=== PATIENT | male | born 1945 | race Caucasian/White ===

== ENCOUNTER 2017-08-20 14:10 | Emergency (ER) | payer MEDICARE, OTHER ==
[~2017-08-20] VITALS: Ht 180.3 cm; Wt 83.0 kg
[2017-08-20 14:11] VITALS: BP 124/80
[2017-08-20] MEDS ORDERED: TRANEXAMIC ACID 100 MG/ML, 10ML TP STA (14:23)
[2017-08-20] MEDS ORDERED: OXYMETAZOLINE NASAL SPRAY 0.05%, 15ML ONE (14:26)
[2017-08-20] MEDS ORDERED: SILVER NITRATE STICK TP ONE (14:26)
[2017-08-20] MEDS ORDERED: TRANEXAMIC ACID 100 MG/ML, 10ML ONE (14:28)
[2017-08-20] MEDS ORDERED: OXYMETAZOLINE NASAL SPRAY 0.05%, 15ML NAS ONE (14:30)
[2017-08-20] MEDS ORDERED: LOSA1TAB19 PO (15:04)
[2017-08-20] MEDS ORDERED: ASPI-496 PO (15:04)
== END 2017-08-20 16:15 | disposition home or self-care (01) ==
LOC: ED 15:30
DX: R04.0 Epistaxis (principal); I10 Essential (primary) hypertension
CPT/HCPCS: 30901; 99284

== ENCOUNTER 2017-08-22 10:57 | Emergency (ER) | payer MEDICARE, OTHER ==
[~2017-08-22] VITALS: Ht 180.3 cm; Wt 83.8 kg
[~2017-08-22 10:57] MED LIST: ASPI-496 PO; LOSA1TAB19 PO
[2017-08-22] MEDS ORDERED: LIDOCAINE GEL 2%, 5ML ONE (11:32)
[2017-08-22] MEDS ORDERED: PHENYLEPHRINE NASAL 1%, 15ML SPRAY ONE (11:32)
[2017-08-22] MEDS ORDERED: LIDOCAINE-MPF 1%, 5ML ONE (11:34)
[2017-08-22] MEDS ORDERED: SILVER NITRATE STICK TP ONE (12:08)
[2017-08-22 14:39] VITALS: BP 131/91
== END 2017-08-22 14:42 | disposition home or self-care (01) ==
LOC: ED 14:19
DX: R04.0 Epistaxis (principal); I10 Essential (primary) hypertension
CPT/HCPCS: 30901; 99282; 99284

== ENCOUNTER 2017-12-28 08:29 | Inpatient (IN) | payer MEDICARE, OTHER ==
[~2017-12-28] VITALS: Ht 180.3 cm; Wt 79.1 kg
[2017-12-28] MEDS ORDERED: ASPIRIN 81 MG TABLET CHEW ONE (09:28)
[2017-12-28] MEDS ORDERED: SODIUM CHLORIDE FLUSH 10ML SYR IVF ONE (09:30)
[2017-12-28] MEDS ORDERED: ASPIRIN 81 MG TABLET CHEW PO ONE (09:30)
[2017-12-28 09:38] LABS: BASOPHILS # (AUTO) 0.02 x10^3/uL (0-0.1); BASOPHILS % (AUTO) 0 % (0-1); EOSINOPHILS # (AUTO) 0.15 x10^3/uL (0-0.4); EOSINOPHILS % (AUTO) 2 % (1-7); LYMPHOCYTES # (AUTO) 1.52 x10^3/uL (1-3.4); LYMPHOCYTES % (AUTO) 18 % (22-44); MD NO; MEAN CORPUSCULAR HEMOGLOBIN 31.4 pg (27.5-34.5); MEAN CORPUSCULAR HGB CONC 33.7 g/dL (33.2-36.2); MEAN CORPUSCULAR VOLUME 93.2 fL (81-97); MEAN PLATELET VOLUME 9.8 fL (7.4-10.4); MONOCYTES # (AUTO) 0.82 x10^3/uL (0.2-0.8); MONOCYTES % (AUTO) 10 % (2-9); NEUTROPHILS # (AUTO) 6.01 x10^3/uL (1.8-6.8); NEUTROPHILS % (AUTO) 71 % (42-75); PLATELET COUNT 210 x10^3/uL (130-400); RED BLOOD COUNT 4.89 x10^6/uL (4.38-5.82); RED CELL DISTRIBUTION WIDTH 14.1 % (9.4-14.8)
[2017-12-28 09:48] LABS: INTERNATIONAL NORMALIZED RATIO 1.3 (0.93-1.1); PROTHROMBIN TIME 13.5 Seconds (9.6-11.5)
[2017-12-28 09:50] LABS: ALBUMIN 3.4 g/dL (3.4-5.0); ANION GAP 6 mmol/L (5-15); CALCIUM 8.3 mg/dL (8.5-10.1); CHLORIDE 107 mmol/L (98-107)
[2017-12-28 09:55] LABS: ALANINE AMINOTRANSFERASE 81 U/L (12-78); ALKALINE PHOSPHATASE 73 U/L (45-117); BILIRUBIN,TOTAL 1.8 mg/dL (0.2-1.0); TOTAL PROTEIN 6.4 g/dL (6.4-8.2)
[2017-12-28 09:57] LABS: TROPONIN I 0.285 ng/mL (0.000-0.045)
[2017-12-28] MEDS ORDERED: FUROSEMIDE 40 MG/4 ML IV ONE (10:00)
[2017-12-28] MEDS ORDERED: HEPARIN 25,000 UNITS/500ML PMX 500 ML IV PRN (10:30)
[2017-12-28] MEDS ORDERED: HEPARIN 5,000 UNITS/ML, 1ML IV PRN (10:30)
[2017-12-28] MEDS ORDERED: HEPARIN 5,000 UNITS/ML, 1ML IV ONE (10:30)
[2017-12-28] MEDS ORDERED: FUROSEMIDE 20 MG/2 ML ONE (11:18)
[2017-12-28] MEDS ORDERED: HEPARIN 5,000 UNITS/ML, 1ML ONE (11:18)
[2017-12-28 12:04] VITALS: BP 122/83
[2017-12-28] MEDS ORDERED: DOCUSATE 100 MG CAPSULE PO PRN (13:00)
[2017-12-28] MEDS ORDERED: ONDANSETRON ODT 4 MG PO PRN (13:00)
[2017-12-28] MEDS ORDERED: ONDANSETRON 2MG/ML, 2ML IVPush PRN (13:00)
[2017-12-28] MEDS ORDERED: NITROGLYCERIN 0.4 MG/SPRAY SL PRN (13:00)
[2017-12-28] MEDS ORDERED: NITROGLYCERIN 0.4 MG BOTTLE (25 TABS) SL PRN (13:00)
[2017-12-28] MEDS ORDERED: morphine SULFATE 10 MG/ML, 1ML IVPush PRN (13:00)
[2017-12-28] MEDS ORDERED: ZOLPIDEM 5MG TABLET PO PRN (13:00)
[2017-12-28 13:27] VITALS: BP 101/66
[2017-12-28 13:52] LABS: THYROID STIMULATING HORMONE 3.09 mIU/L (0.358-3.740)
[2017-12-28] MEDS: SUCRALFATE 1 GM/10 ML UDC PO SCH ×3 (14:15→21:02)
[2017-12-28] MEDS: SPIRONOLACTONE 25 MG TABLET PO SCH (17:07)
[2017-12-28] MEDS: FUROSEMIDE 20 MG/2 ML IV SCH (17:07)
[2017-12-28] MEDS: CAPTOPRIL 12.5 MG TABLET PO SCH (21:02)
[2017-12-28] MEDS: ROPINIROLE 0.5MG TABLET PO SCH (21:02)
[2017-12-28 21:39] VITALS: BP 106/68
[2017-12-28 21:59] LABS: TROPONIN I 0.273 ng/mL (0.000-0.045)
[2017-12-29] MEDS: HEPARIN 5,000 UNITS/ML, 1ML IV PRN ×2 (01:24→15:11)
[2017-12-29 03:55] VITALS: BP 119/80
[2017-12-29] MEDS: ASPIRIN 325 MG TABLET EC PO SCH (06:25)
[2017-12-29 06:46] VITALS: BP 113/75
[2017-12-29 07:58] LABS: BASOPHILS # (AUTO) 0.06 x10^3/uL (0-0.1); BASOPHILS % (AUTO) 1 % (0-1); EOSINOPHILS # (AUTO) 0.15 x10^3/uL (0-0.4); EOSINOPHILS % (AUTO) 2 % (1-7); LYMPHOCYTES # (AUTO) 1.82 x10^3/uL (1-3.4); LYMPHOCYTES % (AUTO) 21 % (22-44); MD NO; MEAN CORPUSCULAR HEMOGLOBIN 30.5 pg (27.5-34.5); MEAN CORPUSCULAR VOLUME 92.3 fL (81-97); MEAN PLATELET VOLUME 10.1 fL (7.4-10.4); MONOCYTES # (AUTO) 0.95 x10^3/uL (0.2-0.8); MONOCYTES % (AUTO) 11 % (2-9); NEUTROPHILS # (AUTO) 5.85 x10^3/uL (1.8-6.8); NEUTROPHILS % (AUTO) 66 % (42-75); PLATELET COUNT 194 x10^3/uL (130-400); RED BLOOD COUNT 4.91 x10^6/uL (4.38-5.82); RED CELL DISTRIBUTION WIDTH 14.1 % (9.4-14.8)
[2017-12-29 08:11] LABS: ALBUMIN 3.3 g/dL (3.4-5.0); ANION GAP 9 mmol/L (5-15); CALCIUM 8.5 mg/dL (8.5-10.1); CHLORIDE 104 mmol/L (98-107)
[2017-12-29 08:17] LABS: ALANINE AMINOTRANSFERASE 71 U/L (12-78); ALKALINE PHOSPHATASE 69 U/L (45-117); BILIRUBIN,TOTAL 2.1 mg/dL (0.2-1.0); CHOL/HDL RATIO 3.2; CHOLESTEROL, TOTAL 123 mg/dL (140-239); HDL CHOL % 31 % (26-37); HDL CHOLESTEROL (DIRECT) 38 mg/dL (40-60); LDL CHOLESTEROL,CALCULATED 67 mg/dL (54-169); LDL/HDL RATIO 1.8 (0.5-3.0); TOTAL PROTEIN 6.3 g/dL (6.4-8.2); TRIGLYCERIDES 91 mg/dL (50-200); VLDL CHOLESTEROL 18 mg/dL (0-25)
[2017-12-29] MEDS: SUCRALFATE 1 GM/10 ML UDC PO SCH ×4 (08:20→21:49)
[2017-12-29] MEDS: PANTOPRAZOLE 40 MG IV IVPush SCH (08:20)
[2017-12-29] MEDS: MAGNESIUM OXIDE 400 MG TABLET PO SCH (08:21)
[2017-12-29] MEDS: SPIRONOLACTONE 25 MG TABLET PO SCH (08:21)
[2017-12-29] MEDS: FUROSEMIDE 20 MG/2 ML IV SCH ×2 (11:43→16:11)
[2017-12-29 11:45] VITALS: BP 118/68
[2017-12-29] MEDS: CAPTOPRIL 12.5 MG TABLET PO SCH ×2 (11:50→21:50)
[2017-12-29] MEDS: HEPARIN 25,000 UNITS/500ML PMX 500 ML IV PRN (12:05)
[2017-12-29 12:36] VITALS: BP 104/64
[2017-12-29 21:11] VITALS: BP 111/72
[2017-12-29] MEDS: ROPINIROLE 0.5MG TABLET PO SCH (22:27)
[2017-12-30 01:07] VITALS: BP 102/62
[2017-12-30 03:34] LABS: ALBUMIN 3.2 g/dL (3.4-5.0); ANION GAP 5 mmol/L (5-15); CALCIUM 8.4 mg/dL (8.5-10.1); CHLORIDE 104 mmol/L (98-107)
[2017-12-30 03:39] LABS: ALANINE AMINOTRANSFERASE 63 U/L (12-78); ALKALINE PHOSPHATASE 63 U/L (45-117); CREATININE 0.98 mg/dL (0.7-1.3); TOTAL PROTEIN 6.3 g/dL (6.4-8.2)
[2017-12-30] MEDS: ASPIRIN 325 MG TABLET EC PO SCH (06:48)
[2017-12-30] MEDS ORDERED: POTASSIUM CHLORIDE 20 MEQ TAB.ER.PRT PO ONE (07:00)
[2017-12-30 07:48] VITALS: BP 107/70
[2017-12-30] MEDS: FUROSEMIDE 20 MG/2 ML IV SCH ×2 (08:13→17:12)
[2017-12-30] MEDS: PANTOPRAZOLE 40 MG IV IVPush SCH (08:13)
[2017-12-30] MEDS: SUCRALFATE 1 GM/10 ML UDC PO SCH ×4 (08:17→21:23)
[2017-12-30] MEDS: MAGNESIUM OXIDE 400 MG TABLET PO SCH (08:17)
[2017-12-30] MEDS: SPIRONOLACTONE 25 MG TABLET PO SCH (08:17)
[2017-12-30] MEDS: CAPTOPRIL 12.5 MG TABLET PO SCH ×2 (08:18→21:23)
[2017-12-30] MEDS: HEPARIN 25,000 UNITS/500ML PMX 500 ML IV PRN (08:30)
[2017-12-30 13:35] VITALS: BP 109/72
[2017-12-30 17:12] VITALS: BP 113/77
[2017-12-30 20:27] VITALS: BP 110/71
[2017-12-30] MEDS: ROPINIROLE 0.5MG TABLET PO SCH (21:23)
[2017-12-31 01:38] VITALS: BP 111/72
[2017-12-31] MEDS: METHYL SALICYLATE/MENTHOL CRM 85GM TP PRN (02:14)
[2017-12-31] MEDS: HEPARIN 25,000 UNITS/500ML PMX 500 ML IV PRN (04:05)
[2017-12-31 05:54] LABS: BASOPHILS # (AUTO) 0.01 x10^3/uL (0-0.1); BASOPHILS % (AUTO) 0 % (0-1); EOSINOPHILS # (AUTO) 0.12 x10^3/uL (0-0.4); EOSINOPHILS % (AUTO) 2 % (1-7); LYMPHOCYTES # (AUTO) 1.83 x10^3/uL (1-3.4); LYMPHOCYTES % (AUTO) 23 % (22-44); MD NO; MEAN CORPUSCULAR HEMOGLOBIN 31.9 pg (27.5-34.5); MEAN CORPUSCULAR HGB CONC 34.1 g/dL (33.2-36.2); MEAN CORPUSCULAR VOLUME 93.6 fL (81-97); MEAN PLATELET VOLUME 9.8 fL (7.4-10.4); MONOCYTES # (AUTO) 0.91 x10^3/uL (0.2-0.8); MONOCYTES % (AUTO) 11 % (2-9); NEUTROPHILS # (AUTO) 5.13 x10^3/uL (1.8-6.8); NEUTROPHILS % (AUTO) 64 % (42-75); PLATELET COUNT 204 x10^3/uL (130-400); RED BLOOD COUNT 4.67 x10^6/uL (4.38-5.82); RED CELL DISTRIBUTION WIDTH 13.4 % (9.4-14.8)
[2017-12-31] MEDS: ASPIRIN 325 MG TABLET EC PO SCH (05:56)
[2017-12-31 06:04] LABS: ALBUMIN 3.1 g/dL (3.4-5.0); ANION GAP 8 mmol/L (5-15); CALCIUM 8.7 mg/dL (8.5-10.1); CHLORIDE 105 mmol/L (98-107)
[2017-12-31 06:05] LABS: CREATININE 0.94 mg/dL (0.7-1.3)
[2017-12-31] MEDS ORDERED: POTASSIUM CHLORIDE 20 MEQ in SODIUM CHLORIDE 0.9% 250 ML IV ONE (06:30)
[2017-12-31 07:36] VITALS: BP 112/78
[2017-12-31] MEDS: MAGNESIUM OXIDE 400 MG TABLET PO SCH (08:54)
[2017-12-31] MEDS: SUCRALFATE 1 GM/10 ML UDC PO SCH ×4 (08:54→20:16)
[2017-12-31] MEDS: SPIRONOLACTONE 25 MG TABLET PO SCH (08:54)
[2017-12-31] MEDS: FUROSEMIDE 20 MG/2 ML IV SCH ×2 (08:55→16:43)
[2017-12-31] MEDS: PANTOPRAZOLE 40 MG IV IVPush SCH (08:55)
[2017-12-31] MEDS: CAPTOPRIL 12.5 MG TABLET PO SCH ×2 (09:09→20:16)
[2017-12-31 13:54] VITALS: BP 98/66
[2017-12-31] MEDS ORDERED: VERAPAMIL 2.5 MG/ML, 2ML ONE (15:17)
[2017-12-31] MEDS ORDERED: FENTANYL PF 100 MCG/2ML ONE (15:17)
[2017-12-31] MEDS ORDERED: BIVALIRUDIN 250 MG ONE (15:17)
[2017-12-31] MEDS ORDERED: LIDOCAINE-MPF 2% ,5ML ONE (15:17)
[2017-12-31] MEDS ORDERED: TICAGRELOR 90 MG TABLET ONE (15:17)
[2017-12-31] MEDS ORDERED: MIDAZOLAM 1 MG/ML, 5ML ONE (15:17)
[2017-12-31 16:42] VITALS: BP 108/69
[2017-12-31] MEDS: CARVEDILOL 3.125 MG TABLET PO SCH (17:44)
[2017-12-31 19:52] VITALS: BP 91/61
[2017-12-31] MEDS: TICAGRELOR 90 MG TABLET PO SCH (20:15)
[2017-12-31] MEDS: ROPINIROLE 0.5MG TABLET PO SCH (20:16)
[2018-01-01 03:30] VITALS: BP 100/65
[2018-01-01 05:24] LABS: BASOPHILS # (AUTO) 0.02 x10^3/uL (0-0.1); BASOPHILS % (AUTO) 0 % (0-1); EOSINOPHILS # (AUTO) 0.12 x10^3/uL (0-0.4); EOSINOPHILS % (AUTO) 1 % (1-7); LYMPHOCYTES % (AUTO) 15 % (22-44); MD NO; MEAN CORPUSCULAR HEMOGLOBIN 31.1 pg (27.5-34.5); MEAN CORPUSCULAR HGB CONC 33.2 g/dL (33.2-36.2); MEAN CORPUSCULAR VOLUME 93.7 fL (81-97); MEAN PLATELET VOLUME 9.6 fL (7.4-10.4); MONOCYTES # (AUTO) 1.14 x10^3/uL (0.2-0.8); MONOCYTES % (AUTO) 13 % (2-9); NEUTROPHILS % (AUTO) 70 % (42-75); PLATELET COUNT 220 x10^3/uL (130-400); RED BLOOD COUNT 4.84 x10^6/uL (4.38-5.82); RED CELL DISTRIBUTION WIDTH 13.8 % (9.4-14.8)
[2018-01-01 05:32] LABS: ALANINE AMINOTRANSFERASE 52 U/L (12-78); ALBUMIN 3.3 g/dL (3.4-5.0); ANION GAP 6 mmol/L (5-15); CALCIUM 8.7 mg/dL (8.5-10.1); CHLORIDE 102 mmol/L (98-107); CREATININE 1.09 mg/dL (0.7-1.3)
[2018-01-01 05:34] LABS: ALKALINE PHOSPHATASE 56 U/L (45-117); BILIRUBIN,TOTAL 2.4 mg/dL (0.2-1.0); TOTAL PROTEIN 6.4 g/dL (6.4-8.2)
[2018-01-01] MEDS ORDERED: POTASSIUM CHLORIDE 20 MEQ TAB.ER.PRT PO ONE (06:30)
[2018-01-01] MEDS: PANTOPRAZOLE 40 MG IV IVPush SCH (07:30)
[2018-01-01] MEDS: FUROSEMIDE 20 MG/2 ML IV SCH (07:30)
[2018-01-01 08:11] VITALS: BP 94/60
[2018-01-01] MEDS: MAGNESIUM OXIDE 400 MG TABLET PO SCH (09:00)
[2018-01-01 09:51] VITALS: BP 93/62
[2018-01-01] MEDS: CAPTOPRIL 12.5 MG TABLET PO SCH (09:54)
[2018-01-01] MEDS: ASPIRIN 81 MG TABLET EC PO SCH (09:58)
[2018-01-01] MEDS: TICAGRELOR 90 MG TABLET PO SCH ×2 (09:58→21:00)
[2018-01-01] MEDS: SPIRONOLACTONE 25 MG TABLET PO SCH (09:58)
[2018-01-01] MEDS: CARVEDILOL 3.125 MG TABLET PO SCH ×2 (09:58→17:34)
[2018-01-01] MEDS: SUCRALFATE 1 GM/10 ML UDC PO SCH ×4 (09:59→21:05)
[2018-01-01 12:37] VITALS: BP 95/62
[2018-01-01 13:20] VITALS: BP 97/61
[2018-01-01] MEDS: METHYL SALICYLATE/MENTHOL CRM 85GM TP PRN (17:33)
[2018-01-01 19:52] VITALS: BP 116/78
[2018-01-01] MEDS: FERROUS SULFATE 325 MG TABLET PO SCH (21:05)
[2018-01-01] MEDS: ROPINIROLE 0.5MG TABLET PO SCH (21:06)
[2018-01-01] MEDS: ATORVASTATIN 40 MG TABLET PO SCH (21:06)
[2018-01-01] MEDS: LISINOPRIL 5 MG TABLET PO SCH (21:06)
[2018-01-02] VITALS (11 sets, daily range): BP systolic 81–101; BP diastolic 50–69
[2018-01-02] MEDS: CARVEDILOL 3.125 MG TABLET PO SCH ×2 (06:00→21:21)
[2018-01-02 06:01] LABS: ALBUMIN 3.3 g/dL (3.4-5.0); ANION GAP 4 mmol/L (5-15); CALCIUM 8.5 mg/dL (8.5-10.1); CHLORIDE 106 mmol/L (98-107)
[2018-01-02 06:06] LABS: ALANINE AMINOTRANSFERASE 52 U/L (12-78); ALKALINE PHOSPHATASE 59 U/L (45-117); BILIRUBIN,TOTAL 2.5 mg/dL (0.2-1.0); CREATININE 0.92 mg/dL (0.7-1.3); TOTAL PROTEIN 6.3 g/dL (6.4-8.2)
[2018-01-02 07:48] LABS: ABSOLUTE RETICS # 0.067 x10^6/uL (0.5-1.5); RED BLOOD COUNT 4.86 x10^6/uL (4.38-5.82); RETICULOCYTE COUNT % 1.37 % (0.5-1.5)
[2018-01-02] MEDS ORDERED: ATROPINE SYRINGE 0.1 MG/ML, 10ML ONE (07:59)
[2018-01-02] MEDS: LISINOPRIL 5 MG TABLET PO SCH ×2 (09:00→21:00)
[2018-01-02] MEDS: CLOPIDOGREL 75 MG TABLET PO SCH (09:31)
[2018-01-02] MEDS: SUCRALFATE 1 GM/10 ML UDC PO SCH ×4 (09:31→20:56)
[2018-01-02] MEDS: ASPIRIN 81 MG TABLET EC PO SCH (09:31)
[2018-01-02] MEDS: POTASSIUM CHLORIDE 10 MEQ TABLET.ER PO SCH (09:31)
[2018-01-02] MEDS: MAGNESIUM OXIDE 400 MG TABLET PO SCH (09:32)
[2018-01-02] MEDS: FUROSEMIDE 20 MG TABLET PO SCH (09:32)
[2018-01-02] MEDS: FERROUS SULFATE 325 MG TABLET PO SCH ×2 (09:32→20:56)
[2018-01-02] MEDS: SPIRONOLACTONE 25 MG TABLET PO SCH (09:32)
[2018-01-02] MEDS ORDERED: FERR-51 PO (11:11)
[2018-01-02] MEDS ORDERED: ROPI0.5T PO (11:11)
[2018-01-02] MEDS ORDERED: SPIR25TA PO (11:11)
[2018-01-02] MEDS ORDERED: CLOP75TA PO (11:11)
[2018-01-02] MEDS ORDERED: CARV3.1212 PO (11:11)
[2018-01-02] MEDS ORDERED: FURO20TA3 PO (11:11)
[2018-01-02] MEDS ORDERED: PANT40TA5 PO (11:11)
[2018-01-02] MEDS ORDERED: MAGN400T26 PO (11:11)
[2018-01-02] MEDS ORDERED: POTA10TA5 PO (11:11)
[2018-01-02] MEDS ORDERED: ATOR40TA78 PO (11:11)
[2018-01-02] MEDS: PANTOPROZOLE 40MG TABLET PO SCH (11:32)
[2018-01-02] MEDS ORDERED: CARVEDILOL 3.125 MG TABLET PO ONE (12:30)
[2018-01-02] MEDS ORDERED: MELATONIN 3 MG TABLET PO PRN (17:30)
[2018-01-02] MEDS: ATORVASTATIN 40 MG TABLET PO SCH (20:56)
[2018-01-02] MEDS: ROPINIROLE 0.5MG TABLET PO SCH (21:00)
[2018-01-03] MEDS: ROPINIROLE 0.5MG TABLET PO SCH (00:44)
[2018-01-03 04:10] VITALS: BP 99/63
[2018-01-03 05:57] LABS: BASOPHILS # (AUTO) 0.01 x10^3/uL (0-0.1); BASOPHILS % (AUTO) 0 % (0-1); EOSINOPHILS # (AUTO) 0.18 x10^3/uL (0-0.4); EOSINOPHILS % (AUTO) 3 % (1-7); LYMPHOCYTES # (AUTO) 1.62 x10^3/uL (1-3.4); LYMPHOCYTES % (AUTO) 23 % (22-44); MD NO; MEAN CORPUSCULAR HEMOGLOBIN 31.6 pg (27.5-34.5); MEAN CORPUSCULAR HGB CONC 33.6 g/dL (33.2-36.2); MEAN PLATELET VOLUME 9.3 fL (7.4-10.4); MONOCYTES # (AUTO) 0.91 x10^3/uL (0.2-0.8); MONOCYTES % (AUTO) 13 % (2-9); NEUTROPHILS # (AUTO) 4.41 x10^3/uL (1.8-6.8); NEUTROPHILS % (AUTO) 62 % (42-75); PLATELET COUNT 194 x10^3/uL (130-400); RED BLOOD COUNT 4.61 x10^6/uL (4.38-5.82); RED CELL DISTRIBUTION WIDTH 13.6 % (9.4-14.8)
[2018-01-03 06:00] LABS: CALCIUM 8.4 mg/dL (8.5-10.1); CHLORIDE 103 mmol/L (98-107)
[2018-01-03] MEDS: CARVEDILOL 3.125 MG TABLET PO SCH (06:00)
[2018-01-03 06:06] LABS: ALANINE AMINOTRANSFERASE 54 U/L (12-78); ALBUMIN 3.2 g/dL (3.4-5.0); ALKALINE PHOSPHATASE 56 U/L (45-117); ANION GAP 7 mmol/L (5-15); BILIRUBIN,TOTAL 2.2 mg/dL (0.2-1.0); CREATININE 1.18 mg/dL (0.7-1.3); TOTAL PROTEIN 6.2 g/dL (6.4-8.2)
[2018-01-03 08:15] VITALS: BP 96/58
[2018-01-03] MEDS: CLOPIDOGREL 75 MG TABLET PO SCH (08:16)
[2018-01-03] MEDS: SPIRONOLACTONE 25 MG TABLET PO SCH (08:16)
[2018-01-03] MEDS: SUCRALFATE 1 GM/10 ML UDC PO SCH (08:16)
[2018-01-03] MEDS: FUROSEMIDE 20 MG TABLET PO SCH (08:16)
[2018-01-03] MEDS: MAGNESIUM OXIDE 400 MG TABLET PO SCH (08:16)
[2018-01-03] MEDS: FERROUS SULFATE 325 MG TABLET PO SCH (08:16)
[2018-01-03] MEDS: PANTOPROZOLE 40MG TABLET PO SCH (08:16)
[2018-01-03] MEDS: LISINOPRIL 5 MG TABLET PO SCH (08:16)
[2018-01-03] MEDS: POTASSIUM CHLORIDE 10 MEQ TABLET.ER PO SCH (08:16)
[2018-01-03] MEDS: ASPIRIN 81 MG TABLET EC PO SCH (08:16)
[2018-01-03] MEDS ORDERED: LISI5TAB7 PO (09:10)
[2018-01-03 09:35] VITALS: BP 97/54
== END 2018-01-03 12:23 | disposition home or self-care (01) | DRG 246 ==
LOC: ED 10:25 → EDIP 10:32 → 5SO 11:38 → DCLOUNGE 01-03 11:48
PROVIDERS: ADMIT Internal Medicine; ATTEND Internal Medicine
PROC: 4A023N7 Measurement of Cardiac Sampling and Pressure, Left Heart, Percutaneous Approach (ICD-10-PCS; principal; 2017-12-31)
PROC: 027034Z Dilation of Coronary Artery, One Artery with Drug-eluting Intraluminal Device, Percutaneous Approach (ICD-10-PCS; 2017-12-31)
PROC: B2111ZZ Fluoroscopy of Multiple Coronary Arteries using Low Osmolar Contrast (ICD-10-PCS; 2017-12-31)
PROC: B2151ZZ Fluoroscopy of Left Heart using Low Osmolar Contrast (ICD-10-PCS; 2017-12-31)
DX: I21.4 Non-ST elevation (NSTEMI) myocardial infarction (principal); I50.31 Acute diastolic (congestive) heart failure; I42.9 Cardiomyopathy, unspecified; E44.1 Mild protein-calorie malnutrition; I31.3 Pericardial effusion (noninflammatory); G25.81 Restless legs syndrome; Z68.24 Body mass index [BMI] 24.0-24.9, adult; I11.0 Hypertensive heart disease with heart failure; I25.5 Ischemic cardiomyopathy; I34.0 Nonrheumatic mitral (valve) insufficiency; K81.1 Chronic cholecystitis; Z79.82 Long term (current) use of aspirin; Z82.49 Family history of ischemic heart disease and other diseases of the circulatory system; Z87.891 Personal history of nicotine dependence
CPT/HCPCS: 36415; 71045; 76700; 80048; 80053; 80061; 82040; 82248; 82607; 82728; 83036; 83540; 83550; 83690; 83735; 83880; 84100; 84443; 84484; 85025; 85045; 85520; 85610; 93005; 93306; 93458; 93571; 96374; 96375; 99156; 99157; 99291; C1769; C1894; C9600; G0378; J0461; J0583; J1644; J1940; J2250; J3010; J3480; J3490; C1725; C1874; C1887; C9113; J7050; Q9967

== ENCOUNTER → 2018-01-29 | Outpatient (CLI) | payer OTHER ==
[~2018-01-29] MED LIST changes: +ATOR40TA78 PO; +CARV3.1212 PO; +CLOP75TA PO; +FERR-51 PO; +FURO20TA3 PO; +LISI5TAB7 PO; +MAGN400T26 PO; +PANT40TA5 PO; +POTA10TA5 PO; +ROPI0.5T PO; +SPIR25TA PO
== END | disposition home or self-care (01) ==
LOC: CFH 09:19
PROVIDERS: ATTEND Internal Medicine Cardiovascular Disease
DX: I08.3 Combined rheumatic disorders of mitral, aortic and tricuspid valves (principal); I31.3 Pericardial effusion (noninflammatory); I42.9 Cardiomyopathy, unspecified; I25.2 Old myocardial infarction; E78.5 Hyperlipidemia, unspecified; Z87.891 Personal history of nicotine dependence
CPT/HCPCS: 93306

== ENCOUNTER → 2018-04-29 | Outpatient (CLI) | payer OTHER | END | disposition home or self-care (01) | LOC: CFH 09:21 | PROVIDERS: ATTEND Physician Assistant Medical | DX: I08.3 Combined rheumatic disorders of mitral, aortic and tricuspid valves (principal); I11.9 Hypertensive heart disease without heart failure; I25.2 Old myocardial infarction; E78.5 Hyperlipidemia, unspecified | CPT/HCPCS: 93306 ==

== ENCOUNTER 2018-05-21 10:21 | Inpatient (IN) | payer OTHER, MEDICARE ==
[2018-05-20 12:11] VITALS: BP 133/85
[2018-05-20 13:05] LABS: BASOPHILS # (AUTO) 0.02 x10^3/uL (0-0.1); BASOPHILS % (AUTO) 0 % (0-1); EOSINOPHILS # (AUTO) 0.06 x10^3/uL (0-0.4); EOSINOPHILS % (AUTO) 1 % (1-7); LYMPHOCYTES # (AUTO) 1.16 x10^3/uL (1-3.4); LYMPHOCYTES % (AUTO) 17 % (22-44); MD NO; MEAN CORPUSCULAR HEMOGLOBIN 31.6 pg (27.5-34.5); MEAN CORPUSCULAR HGB CONC 33.2 g/dL (33.2-36.2); MEAN CORPUSCULAR VOLUME 95.2 fL (81-97); MEAN PLATELET VOLUME 10.3 fL (7.4-10.4); MONOCYTES # (AUTO) 0.77 x10^3/uL (0.2-0.8); MONOCYTES % (AUTO) 11 % (2-9); NEUTROPHILS # (AUTO) 4.88 x10^3/uL (1.8-6.8); NEUTROPHILS % (AUTO) 71 % (42-75); PLATELET COUNT 185 x10^3/uL (130-400); RED BLOOD COUNT 4.54 x10^6/uL (4.38-5.82); RED CELL DISTRIBUTION WIDTH 14.4 % (9.4-14.8)
[~2018-05-21] VITALS: Ht 180.3 cm; Wt 77.2 kg
[~2018-05-21 10:21] MED LIST changes: +ALPR0.254 PO; +CARV3.122 PO; +LISI2.5T PO; +MAGNESIUM PO; +POTA10TA31 PO; +ROPI0.5T2 PO; +SERT25TA3 PO; +SPIR25TA5 PO
[2018-05-21] MEDS ORDERED: CEFAZOLIN PMX 1GM/50ML 50 ML IVPB ONE (11:00)
[2018-05-21 11:14] LABS: ANION GAP 9 mmol/L (5-15); CALCIUM 9.2 mg/dL (8.5-10.1); CHLORIDE 103 mmol/L (98-107); CREATININE 0.93 mg/dL (0.7-1.3)
[2018-05-21] MEDS ORDERED: MIDAZOLAM 1 MG/ML, 5ML ONE (11:36)
[2018-05-21] MEDS ORDERED: LIDOCAINE 1%, 20ML ONE (11:36)
[2018-05-21] MEDS ORDERED: FENTANYL PF 250 MCG/5ML ONE (11:36)
[2018-05-21] MEDS ORDERED: CEFAZOLIN 1,000 MG ONE (11:37)
[2018-05-21] MEDS ORDERED: HYDROcodone/APAP 5/325 TABLET PO PRN (14:00)
[2018-05-21] MEDS ORDERED: HOLD MEDICATION MC PRN (14:00)
[2018-05-21] MEDS: SODIUM CHLORIDE 0.9% 1,000 ML IV SCH ×2 (14:10→18:31)
[2018-05-21 14:30] VITALS: BP 96/60
[2018-05-21] MEDS ORDERED: [UNRECOGNIZED DRUG - REMARK] MC SCH (14:30)
[2018-05-21] MEDS ORDERED: LISINOPRIL 2.5 MG TAB HOMEMEDPO SCH (17:00)
[2018-05-21] MEDS ORDERED: LISINOPRIL 5 MG TABLET PO SCH (17:00)
[2018-05-21] MEDS: CARVEDILOL 3.125 MG TABLET HOMEMEDPO SCH (19:46)
[2018-05-21 20:00] VITALS: BP 112/73
[2018-05-21] MEDS ORDERED: SERTRALINE 25 MG HOMEMEDPO SCH (21:00)
[2018-05-21] MEDS ORDERED: ATORVASTATIN 40 MG TABLET PO SCH (21:00)
[2018-05-21] MEDS ORDERED: ROPINIROLE 0.5MG TABLET HOMEMEDPO SCH (21:00)
[2018-05-21] MEDS ORDERED: SERTRALINE 50MG TABLET PO SCH (21:00)
[2018-05-21] MEDS ORDERED: CARVEDILOL 3.125 MG TABLET PO SCH (21:00)
[2018-05-21] MEDS ORDERED: ROPINIROLE 0.5MG TABLET PO SCH (21:00)
[2018-05-21] MEDS ORDERED: ATORVASTATIN 40 MG TABLET HOMEMEDPO SCH (21:00)
[2018-05-21] MEDS: SODIUM CHLORIDE FLUSH 10ML SYR IVF SCH (21:34)
[2018-05-21] MEDS: CEFAZOLIN PMX 1GM/50ML 50 ML IVPB SCH (21:34)
[2018-05-22 01:50] VITALS: BP 107/69
[2018-05-22] MEDS: CEFAZOLIN PMX 1GM/50ML 50 ML IVPB SCH (05:15)
[2018-05-22] MEDS ORDERED: PANTOPROZOLE 40MG TABLET PO SCH (06:00)
[2018-05-22] MEDS ORDERED: PANTOPROZOLE 40MG TABLET HOMEMEDPO SCH (06:00)
[2018-05-22 06:44] VITALS: BP 93/54
[2018-05-22] MEDS: SODIUM CHLORIDE FLUSH 10ML SYR IVF SCH (07:40)
[2018-05-22] MEDS: CARVEDILOL 3.125 MG TABLET HOMEMEDPO SCH (08:00)
[2018-05-22] MEDS ORDERED: ACET325T14 PO (08:31)
[2018-05-22 08:43] VITALS: BP 92/56
[2018-05-22] MEDS ORDERED: ASPIRIN 81 MG TABLET EC PO SCH (09:00)
[2018-05-22] MEDS ORDERED: SPIRONOLACTONE 25 MG TABLET PO SCH (09:00)
[2018-05-22] MEDS ORDERED: FUROSEMIDE 20 MG TABLET PO SCH (09:00)
[2018-05-22] MEDS ORDERED: ASPIRIN 81 MG TABLET EC HOMEMEDPO SCH (09:00)
[2018-05-22] MEDS ORDERED: FUROSEMIDE 20 MG TABLET HOMEMEDPO SCH (09:00)
[2018-05-22] MEDS ORDERED: CLOPIDOGREL 75 MG TABLET PO SCH (09:00)
[2018-05-22] MEDS ORDERED: MAGNESIUM OXIDE 400 MG TABLET HOMEMEDPO SCH (09:00)
[2018-05-22] MEDS ORDERED: POTASSIUM CHLORIDE 10 MEQ TABLET.ER HOMEMEDPO SCH (09:00)
[2018-05-22] MEDS ORDERED: SPIRONOLACTONE 25 MG TABLET HOMEMEDPO SCH (09:00)
[2018-05-22] MEDS ORDERED: POTASSIUM CHLORIDE 10 MEQ TABLET.ER PO SCH (09:00)
[2018-05-22] MEDS ORDERED: CLOPIDOGREL 75 MG TABLET HOMEMEDPO SCH (09:00)
[2018-05-22] MEDS ORDERED: MAGNESIUM OXIDE 400 MG TABLET PO SCH (09:00)
== END 2018-05-22 10:45 | disposition home or self-care (01) | DRG 227 ==
LOC: CACL 10:21 → 5SO 13:31 → DCLOUNGE 05-22 10:36
PROVIDERS: ADMIT Internal Medicine Cardiovascular Disease; ATTEND Internal Medicine Cardiovascular Disease
PROC: 0JH608Z Insertion of Defibrillator Generator into Chest Subcutaneous Tissue and Fascia, Open Approach (ICD-10-PCS; principal; 2018-05-21)
PROC: 02HK3KZ Insertion of Defibrillator Lead into Right Ventricle, Percutaneous Approach (ICD-10-PCS; 2018-05-21)
PROC: 02H63KZ Insertion of Defibrillator Lead into Right Atrium, Percutaneous Approach (ICD-10-PCS; 2018-05-21)
PROC: 4A0234Z Measurement of Cardiac Electrical Activity, Percutaneous Approach (ICD-10-PCS; 2018-05-21)
PROC: 4B02XTZ Measurement of Cardiac Defibrillator, External Approach (ICD-10-PCS; 2018-05-22)
DX: I42.9 Cardiomyopathy, unspecified (principal); I50.22 Chronic systolic (congestive) heart failure; E78.5 Hyperlipidemia, unspecified; G89.29 Other chronic pain; I25.10 Atherosclerotic heart disease of native coronary artery without angina pectoris; Z95.5 Presence of coronary angioplasty implant and graft
CPT/HCPCS: 33249; 36415; 71045; 71046; 80048; 85025; 93005; 93641; C1721; C1779; C1892; C1895; G0378; J0690; J2250; J3010; J3490

== ENCOUNTER 2018-08-15 13:54 | Inpatient (IN) | payer OTHER, MEDICARE ==
[~2018-08-15] VITALS: Ht 180.3 cm; Wt 78.3 kg
[~2018-08-15 13:54] MED LIST changes: +ACET325T14 PO
[2018-08-15] MEDS ORDERED: SODIUM CHLORIDE FLUSH 10ML SYR IVF ONE (14:30)
[2018-08-15] MEDS ORDERED: ONDANSETRON 2MG/ML, 2ML IVPush ONE (14:30)
[2018-08-15] MEDS ORDERED: ONDANSETRON 2MG/ML, 2ML ONE (14:37)
--- NOTE | 2018-08-15 14:55 | NUR ---
PT TO ED WITH NAUSEA X3 WEEKS, ONE EPISODE OF VOMITING. [place] IN SEPT WITH SOB ONLY SX, 1 STENT AND PACEMAKER/AICD PLACEMENT. DIAGNOSED WITH CHF. HX RESTLESS LEGS. PT PLACED ON MONITOR, MEDICATED WITH ZOFRAN AND IVF BOLUS STARTED. AT BEDSIDE. MD AT BEDSIDE
[2018-08-15] MEDS ORDERED: SODIUM CHLORIDE 0.9% 1,000ML IVBOLUS ONE (15:00)
--- NOTE | 2018-08-15 15:19 | NUR ---
Yaneth farias in [facility] - 08/15/18 at 1519 [address] PT [address]
--- NOTE | 2018-08-15 15:35 | NUR ---
LAB AT BEDSIDE, INSTRUCTED PT ON UA
--- NOTE | 2018-08-15 15:51 | NUR ---
UA SENT, PT RESTING IN [facility] ON MONITOR WITH AT BEDSIDE. BLANKETS PROVIDED
[2018-08-15 16:07] LABS: ALBUMIN 3.7 g/dL (3.4-5.0); ANION GAP 7 mmol/L (5-15); CALCIUM 8.2 mg/dL (8.5-10.1); CHLORIDE 94 mmol/L (98-107)
[2018-08-15 16:13] LABS: ALKALINE PHOSPHATASE 174 U/L (45-117); BILIRUBIN,TOTAL 2.9 mg/dL (0.2-1.0); CREATININE 1.14 mg/dL (0.7-1.3); TOTAL PROTEIN 6.6 g/dL (6.4-8.2); TROPONIN I 0.228 ng/mL (0.000-0.045)
[2018-08-15 16:18] LABS: ALANINE AMINOTRANSFERASE 153 U/L (12-78)
[2018-08-15 16:19] LABS: MICROSCOPIC INDICATED
[2018-08-15] MEDS ORDERED: ASPIRIN 81 MG TABLET CHEW ONE (16:29)
[2018-08-15] MEDS ORDERED: ASPIRIN 81 MG TABLET CHEW PO ONE (16:30)
[2018-08-15] MEDS ORDERED: SODIUM CHLORIDE 0.9% 1,000 ML IV ONE (16:30)
--- NOTE | 2018-08-15 16:34 | NUR ---
MD NOTIFIED OF ELEVATED TROPONIN, ASA ORDERED. MD TO BEDSIDE. PT TBADMITTED
[2018-08-15 16:36] LABS: MEAN CORPUSCULAR HEMOGLOBIN 31.3 pg (27.5-34.5); MEAN CORPUSCULAR HGB CONC 32.7 g/dL (33.2-36.2); MEAN CORPUSCULAR VOLUME 95.7 fL (81-97); MEAN PLATELET VOLUME 11.5 fL (7.4-10.4); PLATELET COUNT 136 x10^3/uL (130-400); RED BLOOD COUNT 4.72 x10^6/uL (4.38-5.82); RED CELL DISTRIBUTION WIDTH 14.1 % (9.4-14.8)
[2018-08-15 16:37] LABS: BASOPHILS % (AUTO) 0 % (0-1); EOSINOPHILS # (AUTO) 0.02 x10^3/uL (0-0.4); EOSINOPHILS % (AUTO) 0 % (1-7); LYMPHOCYTES # (AUTO) 0.88 x10^3/uL (1-3.4); LYMPHOCYTES % (AUTO) 9 % (22-44); MONOCYTES # (AUTO) 1.33 x10^3/uL (0.2-0.8); MONOCYTES % (AUTO) 14 % (2-9); NEUTROPHILS # (AUTO) 7.32 x10^3/uL (1.8-6.8); NEUTROPHILS % (AUTO) 77 % (42-75)
[2018-08-15 16:38] LABS: MD MORPH REVIEW ONLY
[2018-08-15 16:47] LABS: ANISOCYTOSIS 1+; POLYCHROMASIA 1+
[2018-08-15 16:48] LABS: <PLATELET ESTIMATE> ADEQUATE; LARGE PLATELETS 1+
[2018-08-15 17:06] LABS: CULTURE INDICATED? YES
--- NOTE | 2018-08-15 17:50 | NUR ---
BREAK NOTE: PT. IS RESTING AT THIS TIME. PT. WAS GIVEN A BLANKET FOR WARMTH. PT. REMAINS MONITORED AND HAS NO CONCERNS.
--- NOTE | 2018-08-15 18:48 | NUR ---
PT RESTING IN [facility] ON MONITORADMITTING MD AT BEDSIDE, REQUESTING TO SPEAK TO ADMITTING AND REVIEW PAPERWORK, ADMITTING NOTIFIED. CALL LIGHT WITHIN REACH
[2018-08-15] MEDS: SODIUM CHLORIDE 0.9% 1,000 ML IV SCH (19:00)
--- NOTE | 2018-08-15 19:25 | NUR ---
PT REQUESTING TO EAT/DRINK, HIDA SCAN ORDERED AND NPO PER MD. PT INSTRUCTED ON POC.
[2018-08-15] MEDS ORDERED: ACETAMINOPHEN 325 MG TABLET PO PRN (19:30)
[2018-08-15] MEDS ORDERED: BISACODYL 10 MG SUPP PR PRN (19:30)
[2018-08-15] MEDS ORDERED: POLYETHYLENE GLYCOL 17 GM PACKET PO PRN (19:30)
[2018-08-15] MEDS ORDERED: ONDANSETRON ODT 4 MG PO PRN (19:30)
--- NOTE | 2018-08-15 20:42 | NUR ---
ATTEMPTED TO CALL REPORT TO SOLUTION DESIGN AND ANALYSIS MANAGER, ANGELO STATED RN IN ISO ROOM AND WILL CALL WHEN OUT
--- NOTE | 2018-08-15 20:55 | NUR ---
REPORT TO MARICEL GAINES
[2018-08-15] MEDS: ROPINIROLE 0.5MG TABLET PO SCH (21:00)
[2018-08-15] MEDS: SERTRALINE 50MG TABLET PO SCH (21:58)
[2018-08-15] MEDS: HEPARIN 5,000 UNITS/ML, 1ML SQ SCH (21:58)
[2018-08-15 22:03] LABS: TROPONIN I 0.214 ng/mL (0.000-0.045)
[2018-08-15 22:25] VITALS: BP 110/76
[2018-08-15] MEDS: CARVEDILOL 3.125 MG TABLET PO SCH (22:26)
[2018-08-15 22:37] VITALS: BP 110/76
[2018-08-16 01:21] VITALS: BP 106/75
[2018-08-16] MEDS: SODIUM CHLORIDE 0.9% 1,000 ML IV SCH (03:52)
[2018-08-16 04:56] LABS: MEAN CORPUSCULAR HEMOGLOBIN 31.7 pg (27.5-34.5); MEAN CORPUSCULAR VOLUME 96.1 fL (81-97); PLATELET COUNT 136 x10^3/uL (130-400); RED BLOOD COUNT 4.82 x10^6/uL (4.38-5.82); RED CELL DISTRIBUTION WIDTH 13.6 % (9.4-14.8)
[2018-08-16 05:02] LABS: ALANINE AMINOTRANSFERASE 201 U/L (12-78); ALBUMIN 3.5 g/dL (3.4-5.0); ANION GAP 9 mmol/L (5-15); CALCIUM 8.5 mg/dL (8.5-10.1); CHLORIDE 97 mmol/L (98-107); CREATININE 1.09 mg/dL (0.7-1.3)
[2018-08-16 05:06] LABS: ALKALINE PHOSPHATASE 208 U/L (45-117); BILIRUBIN,TOTAL 3.4 mg/dL (0.2-1.0); TOTAL PROTEIN 6.4 g/dL (6.4-8.2); TROPONIN I 0.218 ng/mL (0.000-0.045)
[2018-08-16 05:44] LABS: BASOPHILS # (AUTO) 0.02 x10^3/uL (0-0.1); BASOPHILS % (AUTO) 0 % (0-1); EOSINOPHILS # (AUTO) 0.02 x10^3/uL (0-0.4); EOSINOPHILS % (AUTO) 0 % (1-7); LYMPHOCYTES # (AUTO) 1.23 x10^3/uL (1-3.4); LYMPHOCYTES % (AUTO) 12 % (22-44); MD SCAN; MONOCYTES % (AUTO) 15 % (2-9); NEUTROPHILS # (AUTO) 7.31 x10^3/uL (1.8-6.8); NEUTROPHILS % (AUTO) 73 % (42-75)
[2018-08-16] MEDS: HEPARIN 5,000 UNITS/ML, 1ML SQ SCH ×2 (05:49→16:17)
[2018-08-16 07:38] VITALS: BP 96/77
[2018-08-16] MEDS ORDERED: SPIRONOLACTONE 25 MG TABLET PO SCH (09:00)
[2018-08-16] MEDS ORDERED: POTASSIUM CHLORIDE 10 MEQ TABLET.ER PO SCH (09:00)
[2018-08-16] MEDS ORDERED: FUROSEMIDE 20 MG TABLET PO SCH (09:00)
[2018-08-16] MEDS: MAGNESIUM OXIDE 400 MG TABLET PO SCH (09:00)
[2018-08-16] MEDS: SENNA/DOCUSATE TABLET PO SCH (09:00)
[2018-08-16] MEDS ORDERED: SINCALIDE (KINEVAC) 5 MCG ONE (13:50)
[2018-08-16 15:20] VITALS: BP 111/73
[2018-08-16] MEDS: CARVEDILOL 3.125 MG TABLET PO SCH ×2 (15:20→21:40)
[2018-08-16] MEDS: CLOPIDOGREL 75 MG TABLET PO SCH (15:20)
[2018-08-16] MEDS: ASPIRIN 81 MG TABLET EC PO SCH (15:21)
[2018-08-16 15:37] LABS: ANION GAP 8 mmol/L (5-15); CHLORIDE 96 mmol/L (98-107); CREATININE 1.22 mg/dL (0.7-1.3)
[2018-08-16] MEDS ORDERED: LISINOPRIL 5 MG TABLET PO SCH (17:00)
[2018-08-16 17:22] LABS: OSMOLALITY,URINE 859 mOsm/kg (500-850)
[2018-08-16 17:44] LABS: SODIUM,URINE RANDOM < 5 mmol/L
[2018-08-16 18:24] VITALS: BP 100/67
[2018-08-16 20:11] VITALS: BP 99/67
[2018-08-16] MEDS: ROPINIROLE 0.5MG TABLET PO SCH (21:25)
[2018-08-16] MEDS: SERTRALINE 50MG TABLET PO SCH (21:25)
[2018-08-17] MEDS: HEPARIN 5,000 UNITS/ML, 1ML SQ SCH ×3 (01:11→16:00)
[2018-08-17 03:47] VITALS: BP 91/65
[2018-08-17 07:18] VITALS: BP 98/64
[2018-08-17] MEDS: CLOPIDOGREL 75 MG TABLET PO SCH (08:23)
[2018-08-17] MEDS: MAGNESIUM OXIDE 400 MG TABLET PO SCH (08:23)
[2018-08-17] MEDS: SENNA/DOCUSATE TABLET PO SCH (08:23)
[2018-08-17] MEDS: ASPIRIN 81 MG TABLET EC PO SCH (08:23)
[2018-08-17] MEDS: CARVEDILOL 3.125 MG TABLET PO SCH ×2 (08:23→21:22)
[2018-08-17 09:04] LABS: ALANINE AMINOTRANSFERASE 309 U/L (12-78); ALBUMIN 3.4 g/dL (3.4-5.0); ANION GAP 7 mmol/L (5-15); CALCIUM 8.5 mg/dL (8.5-10.1); CHLORIDE 97 mmol/L (98-107); CREATININE 1.05 mg/dL (0.7-1.3)
[2018-08-17 09:05] LABS: MEAN CORPUSCULAR HEMOGLOBIN 31.4 pg (27.5-34.5); MEAN CORPUSCULAR VOLUME 95.1 fL (81-97); PLATELET COUNT 140 x10^3/uL (130-400); RED BLOOD COUNT 4.53 x10^6/uL (4.38-5.82)
[2018-08-17 09:06] LABS: ALKALINE PHOSPHATASE 185 U/L (45-117); BILIRUBIN,TOTAL 3.5 mg/dL (0.2-1.0)
[2018-08-17 09:26] LABS: BASOPHILS # (AUTO) 0.04 x10^3/uL (0-0.1); BASOPHILS % (AUTO) 0 % (0-1); EOSINOPHILS # (AUTO) 0.06 x10^3/uL (0-0.4); EOSINOPHILS % (AUTO) 1 % (1-7); LYMPHOCYTES # (AUTO) 1.01 x10^3/uL (1-3.4); LYMPHOCYTES % (AUTO) 9 % (22-44); MD SCAN; MONOCYTES # (AUTO) 1.34 x10^3/uL (0.2-0.8); MONOCYTES % (AUTO) 12 % (2-9); NEUTROPHILS # (AUTO) 8.72 x10^3/uL (1.8-6.8); NEUTROPHILS % (AUTO) 78 % (42-75)
[2018-08-17] MEDS ORDERED: FUROSEMIDE 20 MG/2 ML IV ONE (10:00)
[2018-08-17 14:00] VITALS: BP 96/64
[2018-08-17 18:08] VITALS: BP 88/61
[2018-08-17 19:23] VITALS: BP 90/60
[2018-08-17] MEDS: SERTRALINE 50MG TABLET PO SCH (21:22)
[2018-08-17] MEDS: ROPINIROLE 0.5MG TABLET PO SCH (21:22)
[2018-08-18 00:26] VITALS: BP 95/65
[2018-08-18] MEDS: HEPARIN 5,000 UNITS/ML, 1ML SQ SCH ×3 (00:26→16:00)
[2018-08-18 08:00] VITALS: BP 97/65
[2018-08-18] MEDS: ASPIRIN 81 MG TABLET EC PO SCH (08:06)
[2018-08-18] MEDS: CLOPIDOGREL 75 MG TABLET PO SCH (08:06)
[2018-08-18] MEDS: CARVEDILOL 3.125 MG TABLET PO SCH ×2 (08:06→20:49)
[2018-08-18] MEDS: SENNA/DOCUSATE TABLET PO SCH (09:00)
[2018-08-18] MEDS: MAGNESIUM OXIDE 400 MG TABLET PO SCH (09:00)
[2018-08-18 09:41] LABS: BASOPHILS # (AUTO) 0.02 x10^3/uL (0-0.1); BASOPHILS % (AUTO) 0 % (0-1); EOSINOPHILS # (AUTO) 0.17 x10^3/uL (0-0.4); EOSINOPHILS % (AUTO) 2 % (1-7); LYMPHOCYTES # (AUTO) 1.17 x10^3/uL (1-3.4); LYMPHOCYTES % (AUTO) 12 % (22-44); MD NO; MEAN CORPUSCULAR HEMOGLOBIN 32.2 pg (27.5-34.5); MEAN CORPUSCULAR HGB CONC 33.5 g/dL (33.2-36.2); MEAN CORPUSCULAR VOLUME 96.2 fL (81-97); MONOCYTES # (AUTO) 0.91 x10^3/uL (0.2-0.8); MONOCYTES % (AUTO) 10 % (2-9); NEUTROPHILS # (AUTO) 7.19 x10^3/uL (1.8-6.8); NEUTROPHILS % (AUTO) 76 % (42-75); PLATELET COUNT 132 x10^3/uL (130-400); RED BLOOD COUNT 4.51 x10^6/uL (4.38-5.82); RED CELL DISTRIBUTION WIDTH 13.9 % (9.4-14.8)
[2018-08-18 09:50] LABS: ALANINE AMINOTRANSFERASE 271 U/L (12-78); ALBUMIN 3.4 g/dL (3.4-5.0); ANION GAP 6 mmol/L (5-15); CALCIUM 8.4 mg/dL (8.5-10.1); CHLORIDE 91 mmol/L (98-107); CREATININE 1.16 mg/dL (0.7-1.3)
[2018-08-18 09:52] LABS: ALKALINE PHOSPHATASE 196 U/L (45-117); TOTAL PROTEIN 6.2 g/dL (6.4-8.2)
[2018-08-18 14:00] VITALS: BP 101/69
[2018-08-18] MEDS: ROPINIROLE 0.5MG TABLET PO SCH (18:43)
[2018-08-18 19:12] VITALS: BP 102/71
[2018-08-18 20:35] VITALS: BP 92/55
[2018-08-18] MEDS: SERTRALINE 50MG TABLET PO SCH (20:48)
[2018-08-19 01:41] VITALS: BP 100/67
[2018-08-19] MEDS: HEPARIN 5,000 UNITS/ML, 1ML SQ SCH ×2 (01:47→09:30)
[2018-08-19] MEDS ORDERED: INSULIN SINGLE DOSE, ER SQ-INSULIN ONE (07:52)
[2018-08-19 07:55] VITALS: BP 100/66
[2018-08-19 08:14] LABS: ALANINE AMINOTRANSFERASE 291 U/L (12-78); ALBUMIN 3.3 g/dL (3.4-5.0); ANION GAP 4 mmol/L (5-15); CALCIUM 8.4 mg/dL (8.5-10.1); CHLORIDE 95 mmol/L (98-107); CREATININE 1.22 mg/dL (0.7-1.3)
[2018-08-19 08:16] LABS: ALKALINE PHOSPHATASE 251 U/L (45-117); BILIRUBIN,TOTAL 4.2 mg/dL (0.2-1.0); TOTAL PROTEIN 5.8 g/dL (6.4-8.2)
[2018-08-19] MEDS: SENNA/DOCUSATE TABLET PO SCH (09:00)
[2018-08-19] MEDS ORDERED: INSULIN REGULAR 100 UNITS/ML, 3ML VIAL IVPush ONE (09:30)
[2018-08-19] MEDS ORDERED: CALCIUM GLUCONATE 0.46MEQ/1ML IVPush ONE (09:30)
[2018-08-19] MEDS ORDERED: DEXTROSE 50%, 50ML SYRINGE IVPush ONE (09:30)
[2018-08-19] MEDS ORDERED: CALCIUM GLUCONATE 4.6 MEQ in SODIUM CHLORIDE 0.9% 50 ML IV ONE (10:00)
[2018-08-19] MEDS ORDERED: SODIUM BICARB 8.4%, 50ML SYRINGE IVPush ONE (10:00)
[2018-08-19] MEDS: CLOPIDOGREL 75 MG TABLET PO SCH (10:24)
[2018-08-19] MEDS: MAGNESIUM OXIDE 400 MG TABLET PO SCH (10:26)
[2018-08-19] MEDS: ASPIRIN 81 MG TABLET EC PO SCH (10:26)
[2018-08-19] MEDS: CARVEDILOL 3.125 MG TABLET PO SCH (10:27)
[2018-08-19 12:22] LABS: ANION GAP 6 mmol/L (5-15); CALCIUM 8.5 mg/dL (8.5-10.1); CHLORIDE 96 mmol/L (98-107)
[2018-08-19 12:23] LABS: CREATININE 1.11 mg/dL (0.7-1.3)
[2018-08-19 13:32] LABS: BILIRUBIN, DIRECT 1.6 mg/dL (0.1-0.2)
[2018-08-19 13:34] LABS: BILIRUBIN,INDIRECT 2.6 mg/dL (0.0-2.0); BILIRUBIN,TOTAL 4.2 mg/dL (0.2-1.0)
== END 2018-08-19 16:20 | disposition home or self-care (01) | DRG 281 ==
LOC: ED 17:07 → EDIP 17:53 → 5SO 21:18 → 3NE 08-17 17:44 → 4WST 08-19 11:17 → DCLOUNGE 08-19 16:02
PROVIDERS: ADMIT Internal Medicine; ATTEND Internal Medicine
DX: I21.4 Non-ST elevation (NSTEMI) myocardial infarction (principal); E87.1 Hypo-osmolality and hyponatremia; I42.9 Cardiomyopathy, unspecified; I50.22 Chronic systolic (congestive) heart failure; E87.5 Hyperkalemia; F32.9 Major depressive disorder, single episode, unspecified; K75.9 Inflammatory liver disease, unspecified; R11.2 Nausea with vomiting, unspecified; G25.81 Restless legs syndrome; I11.0 Hypertensive heart disease with heart failure; R63.0 Anorexia; I25.10 Atherosclerotic heart disease of native coronary artery without angina pectoris; I25.2 Old myocardial infarction; Z82.49 Family history of ischemic heart disease and other diseases of the circulatory system; Z87.891 Personal history of nicotine dependence; Z95.5 Presence of coronary angioplasty implant and graft; Z95.810 Presence of automatic (implantable) cardiac defibrillator; Z79.82 Long term (current) use of aspirin; Z79.02 Long term (current) use of antithrombotics/antiplatelets; Z79.01 Long term (current) use of anticoagulants; Z68.24 Body mass index [BMI] 24.0-24.9, adult
CPT/HCPCS: 36415; 71045; 74181; 76700; 78227; 80048; 80053; 80074; 81001; 82247; 82248; 82962; 83605; 83690; 83735; 83880; 83930; 83935; 84145; 84295; 84300; 84484; 85025; 87040; 87086; 93005; G0378; J0610; J1644; J1815; J2405; Q0162; A9537; C9898; J1940; J2805; J7030

== ENCOUNTER 2018-08-30 13:33 | Inpatient (IN) | payer OTHER, MEDICARE ==
[~2018-08-30] VITALS: Ht 177.8 cm; Wt 76.0 kg
[2018-08-30] MEDS ORDERED: SODIUM CHLORIDE FLUSH 10ML SYR IVF ONE (14:30)
--- NOTE | 2018-08-30 14:39 | NUR ---
pt referred to ed after epcp call to say that sodium was "dangerously low." [facility] [employer]. edmd assessment complete. iv started and labs drawn. cxr complete. ua collected and sent. lab to bs to collect add on. pt resting in room with at bs. no needs expressed. awaiting results.
[2018-08-30 14:52] LABS: BASOPHILS # (AUTO) 0.02 x10^3/uL (0-0.1); BASOPHILS % (AUTO) 0 % (0-1); EOSINOPHILS # (AUTO) 0.07 x10^3/uL (0-0.4); EOSINOPHILS % (AUTO) 1 % (1-7); LYMPHOCYTES # (AUTO) 0.93 x10^3/uL (1-3.4); LYMPHOCYTES % (AUTO) 14 % (22-44); MD NO; MEAN CORPUSCULAR HEMOGLOBIN 30.6 pg (27.5-34.5); MEAN CORPUSCULAR HGB CONC 32.1 g/dL (33.2-36.2); MEAN CORPUSCULAR VOLUME 95.4 fL (81-97); MEAN PLATELET VOLUME 10.6 fL (7.4-10.4); MONOCYTES # (AUTO) 0.57 x10^3/uL (0.2-0.8); MONOCYTES % (AUTO) 9 % (2-9); NEUTROPHILS # (AUTO) 4.89 x10^3/uL (1.8-6.8); NEUTROPHILS % (AUTO) 75 % (42-75); PLATELET COUNT 174 x10^3/uL (130-400); RED BLOOD COUNT 5.32 x10^6/uL (4.38-5.82); RED CELL DISTRIBUTION WIDTH 14.9 % (9.4-14.8)
[2018-08-30 14:53] LABS: INTERNATIONAL NORMALIZED RATIO 1.37 (0.93-1.1); PROTHROMBIN TIME 14.2 Seconds (9.6-11.5)
[2018-08-30 14:57] LABS: ALBUMIN 3.9 g/dL (3.4-5.0); ANION GAP 8 mmol/L (5-15); CALCIUM 8.5 mg/dL (8.5-10.1); CHLORIDE 89 mmol/L (98-107)
[2018-08-30 15:01] LABS: ALANINE AMINOTRANSFERASE 61 U/L (12-78); ALKALINE PHOSPHATASE 193 U/L (45-117); CREATININE 1.21 mg/dL (0.7-1.3); TOTAL PROTEIN 7.1 g/dL (6.4-8.2)
--- NOTE | 2018-08-30 15:05 | NUR ---
SBAR report received from RN, Cindy. Pt resting on edwin, at bedside.
--- NOTE | 2018-08-30 15:07 | NUR ---
pt resting in room with at bs. vss. no needs expressed. awaiting lab results. report to abiola cain.
[2018-08-30 15:20] LABS: CULTURE INDICATED? YES; MICROSCOPIC INDICATED
[2018-08-30] MEDS ORDERED: FUROSEMIDE 40 MG/4 ML ONE (15:40)
--- NOTE | 2018-08-30 15:45 | NUR ---
Dr. Watson at bedside to discuss ED findings and plan to admit. Pt medicated per JUN.
[2018-08-30] MEDS ORDERED: FUROSEMIDE 40 MG/4 ML IV ONE (16:00)
--- NOTE | 2018-08-30 16:42 | NUR ---
Pt resting on gurney, remains at bedside. Pt and aware of plan to be admitted to telemetry floor.
[2018-08-30] MEDS ORDERED: ALPR0.254 PO (16:52)
[2018-08-30] MEDS ORDERED: LABETALOL 5MG/ML, 20ML IVPush PRN (17:00)
[2018-08-30] MEDS ORDERED: ACETAMINOPHEN 325 MG TABLET PO PRN (17:00)
[2018-08-30] MEDS ORDERED: ONDANSETRON 2MG/ML, 2ML IVPush PRN (17:00)
--- NOTE | 2018-08-30 17:06 | NUR ---
Telephone SBAR report called to RNPavithra. Pt and made aware of new room assignment.
[2018-08-30 17:29] LABS: FREE T4 (FREE THYROXINE) 1.28 ng/dL (0.76-1.46)
[2018-08-30 17:29] LABS: ANION GAP 6 mmol/L (5-15); CALCIUM 8.3 mg/dL (8.5-10.1); CHLORIDE 90 mmol/L (98-107); CREATININE 1.17 mg/dL (0.7-1.3)
[2018-08-30 17:32] LABS: TROPONIN I 0.191 ng/mL (0.000-0.045)
[2018-08-30 17:57] VITALS: BP 113/71
[2018-08-30] MEDS: ENOXAPARIN 40 MG/0.4 ML SQ SCH (18:00)
[2018-08-30] MEDS: LISINOPRIL 5 MG TABLET PO SCH (18:00)
[2018-08-30 19:10] LABS: OSMOLALITY,URINE 504 mOsm/kg (500-850)
[2018-08-30 19:13] LABS: POTASSIUM,URINE RANDOM 44 mmol/L
[2018-08-30 19:14] LABS: CHLORIDE,URINE RANDOM < 10 mmol/L; SODIUM,URINE RANDOM < 5 mmol/L
[2018-08-30] MEDS: ROPINIROLE 0.5MG TABLET PO SCH (20:37)
[2018-08-30] MEDS: CARVEDILOL 3.125 MG TABLET PO SCH (20:37)
[2018-08-30 20:39] VITALS: BP 99/68
[2018-08-30 20:55] LABS: ANION GAP 6 mmol/L (5-15); CHLORIDE 92 mmol/L (98-107)
[2018-08-30] MEDS ORDERED: SERTRALINE HCL 25 MG PO SCH (21:00)
[2018-08-31 01:11] VITALS: BP 95/61
[2018-08-31 05:24] LABS: BASOPHILS # (AUTO) 0.01 x10^3/uL (0-0.1); BASOPHILS % (AUTO) 0 % (0-1); EOSINOPHILS # (AUTO) 0.05 x10^3/uL (0-0.4); EOSINOPHILS % (AUTO) 1 % (1-7); LYMPHOCYTES # (AUTO) 0.92 x10^3/uL (1-3.4); LYMPHOCYTES % (AUTO) 15 % (22-44); MD NO; MEAN CORPUSCULAR HGB CONC 33.5 g/dL (33.2-36.2); MEAN CORPUSCULAR VOLUME 95.4 fL (81-97); MEAN PLATELET VOLUME 10.3 fL (7.4-10.4); MONOCYTES # (AUTO) 0.56 x10^3/uL (0.2-0.8); MONOCYTES % (AUTO) 9 % (2-9); NEUTROPHILS # (AUTO) 4.52 x10^3/uL (1.8-6.8); NEUTROPHILS % (AUTO) 75 % (42-75); PLATELET COUNT 147 x10^3/uL (130-400); RED CELL DISTRIBUTION WIDTH 14.9 % (9.4-14.8)
[2018-08-31 05:28] LABS: ALANINE AMINOTRANSFERASE 47 U/L (12-78); ALBUMIN 3.3 g/dL (3.4-5.0); ANION GAP 7 mmol/L (5-15); CALCIUM 8.2 mg/dL (8.5-10.1); CHLORIDE 93 mmol/L (98-107); CREATININE 1.11 mg/dL (0.7-1.3)
[2018-08-31 05:38] LABS: ALKALINE PHOSPHATASE 152 U/L (45-117); BILIRUBIN,TOTAL 3.4 mg/dL (0.2-1.0); TOTAL PROTEIN 5.8 g/dL (6.4-8.2)
[2018-08-31] MEDS: CLOPIDOGREL 75 MG TABLET PO SCH (08:34)
[2018-08-31] MEDS: ASPIRIN 81 MG TABLET EC PO SCH (08:34)
[2018-08-31 08:35] VITALS: BP 104/71
[2018-08-31] MEDS: CARVEDILOL 3.125 MG TABLET PO SCH ×2 (08:35→19:54)
[2018-08-31] MEDS ORDERED: FUROSEMIDE 20 MG TABLET PO SCH (09:00)
[2018-08-31 10:59] LABS: ANION GAP 5 mmol/L (5-15); CALCIUM 8.5 mg/dL (8.5-10.1); CHLORIDE 91 mmol/L (98-107); CREATININE 1.12 mg/dL (0.7-1.3)
[2018-08-31] MEDS ORDERED: ROPINIROLE 0.5MG TABLET PO PRN (12:30)
[2018-08-31 13:37] VITALS: BP 97/63
[2018-08-31] MEDS: LISINOPRIL 5 MG TABLET PO SCH (15:41)
[2018-08-31] MEDS: ENOXAPARIN 40 MG/0.4 ML SQ SCH (15:57)
[2018-08-31] MEDS ORDERED: FUROSEMIDE 20 MG/2 ML IV ONE (16:00)
[2018-08-31 16:51] LABS: ANION GAP 7 mmol/L (5-15); CALCIUM 8.6 mg/dL (8.5-10.1); CHLORIDE 91 mmol/L (98-107); CREATININE 1.14 mg/dL (0.7-1.3)
[2018-08-31 19:13] VITALS: BP 97/66
[2018-08-31] MEDS: ROPINIROLE 0.5MG TABLET PO SCH (19:54)
[2018-08-31 22:00] LABS: ANION GAP 7 mmol/L (5-15); CALCIUM 8.2 mg/dL (8.5-10.1); CHLORIDE 92 mmol/L (98-107)
[2018-09-01 05:12] VITALS: BP 102/68
[2018-09-01 05:45] LABS: CHLORIDE 93 mmol/L (98-107)
[2018-09-01 05:54] LABS: ALANINE AMINOTRANSFERASE 47 U/L (12-78); ALBUMIN 3.5 g/dL (3.4-5.0); ALKALINE PHOSPHATASE 157 U/L (45-117); ANION GAP 8 mmol/L (5-15); CALCIUM 8.3 mg/dL (8.5-10.1); CREATININE 1.01 mg/dL (0.7-1.3); TOTAL PROTEIN 6.3 g/dL (6.4-8.2)
[2018-09-01 08:09] VITALS: BP 101/67
[2018-09-01] MEDS: CARVEDILOL 3.125 MG TABLET PO SCH ×2 (09:06→20:28)
[2018-09-01] MEDS: FUROSEMIDE 20 MG TABLET PO SCH ×2 (09:06→20:28)
[2018-09-01] MEDS: ASPIRIN 81 MG TABLET EC PO SCH (09:06)
[2018-09-01] MEDS: CLOPIDOGREL 75 MG TABLET PO SCH (09:06)
[2018-09-01 12:31] VITALS: BP 100/75
[2018-09-01] MEDS: ENOXAPARIN 40 MG/0.4 ML SQ SCH (18:36)
[2018-09-01] MEDS: LISINOPRIL 5 MG TABLET PO SCH (18:37)
[2018-09-01 19:39] VITALS: BP 94/64
[2018-09-01] MEDS: ROPINIROLE 0.5MG TABLET PO SCH (20:27)
[2018-09-02 02:07] VITALS: BP 94/61
[2018-09-02 04:50] LABS: CHLORIDE 96 mmol/L (98-107)
[2018-09-02 04:57] LABS: ALANINE AMINOTRANSFERASE 31 U/L (12-78); ALBUMIN 2.8 g/dL (3.4-5.0); ALKALINE PHOSPHATASE 116 U/L (45-117); ANION GAP 6 mmol/L (5-15); BILIRUBIN,TOTAL 3.1 mg/dL (0.2-1.0); CALCIUM 7.9 mg/dL (8.5-10.1); CREATININE 0.99 mg/dL (0.7-1.3); TOTAL PROTEIN 5.2 g/dL (6.4-8.2)
[2018-09-02 06:50] VITALS: BP 93/58
[2018-09-02] MEDS ORDERED: POTASSIUM CHLORIDE 10 MEQ TABLET.ER PO SCH (08:00)
[2018-09-02] MEDS: FUROSEMIDE 20 MG TABLET PO SCH ×2 (09:00→11:25)
[2018-09-02] MEDS ORDERED: FURO20TA3 PO (09:28)
[2018-09-02] MEDS ORDERED: POTA10TA5 PO (09:28)
[2018-09-02] MEDS: CARVEDILOL 3.125 MG TABLET PO SCH (11:05)
[2018-09-02] MEDS: ASPIRIN 81 MG TABLET EC PO SCH (11:05)
[2018-09-02] MEDS: CLOPIDOGREL 75 MG TABLET PO SCH (11:05)
[2018-09-02] MEDS ORDERED: FAMOTIDINE 20 MG TABLET ONE (11:16)
== END 2018-09-02 11:29 | disposition home or self-care (01) | DRG 643 ==
LOC: ED 14:20 → EDIP 15:49 → 5SO 17:36 → 3NW 09-01 12:30 → DCLOUNGE 09-02 10:55 → UNDODISIN 09-02 11:03 → DCLOUNGE 09-02 11:28
PROVIDERS: ADMIT Internal Medicine; ATTEND Internal Medicine
DX: E22.2 Syndrome of inappropriate secretion of antidiuretic hormone (principal); I50.43 Acute on chronic combined systolic (congestive) and diastolic (congestive) heart failure; G25.81 Restless legs syndrome; I11.0 Hypertensive heart disease with heart failure; I25.10 Atherosclerotic heart disease of native coronary artery without angina pectoris; N28.1 Cyst of kidney, acquired; Z95.5 Presence of coronary angioplasty implant and graft; Z95.810 Presence of automatic (implantable) cardiac defibrillator; I25.2 Old myocardial infarction; Z82.49 Family history of ischemic heart disease and other diseases of the circulatory system; Z79.899 Other long term (current) drug therapy
CPT/HCPCS: 36415; 71045; 74178; 76705; 80048; 80053; 81001; 82140; 82436; 82533; 83735; 83880; 83930; 83935; 84133; 84300; 84439; 84443; 84484; 85025; 85610; 87086; 93005; 93306; 96374; G0378; J1650; J1940

== ENCOUNTER 2018-09-15 18:28 | Inpatient (IN) | payer OTHER, MEDICARE ==
[~2018-09-15] VITALS: Ht 177.8 cm; Wt 78.0 kg
--- NOTE | 2018-09-15 18:56 | NUR ---
SOB AND LEG SWELLING X 10 DAYS, DC'D FROM HOSPITAL @ 10 DAYS AGO. HAS BEEN ONGOING SINCE DC. EKG DONE IN TRIAGE. HAD PACER AND DEFIB PLACED IN APRIL. per triage note
[2018-09-15] MEDS ORDERED: OMNIPAQUE 350 MG/ML, 100ML BOTTLE ONE (19:00)
[2018-09-15 19:08] LABS: BASOPHILS # (AUTO) 0.02 x10^3/uL (0-0.1); BASOPHILS % (AUTO) 0 % (0-1); EOSINOPHILS # (AUTO) 0.09 x10^3/uL (0-0.4); EOSINOPHILS % (AUTO) 2 % (1-7); LYMPHOCYTES % (AUTO) 15 % (22-44); MD NO; MEAN CORPUSCULAR HEMOGLOBIN 31.8 pg (27.5-34.5); MEAN CORPUSCULAR HGB CONC 32.8 g/dL (33.2-36.2); MEAN CORPUSCULAR VOLUME 97.1 fL (81-97); MONOCYTES # (AUTO) 0.59 x10^3/uL (0.2-0.8); MONOCYTES % (AUTO) 11 % (2-9); NEUTROPHILS # (AUTO) 3.94 x10^3/uL (1.8-6.8); NEUTROPHILS % (AUTO) 73 % (42-75); PLATELET COUNT 170 x10^3/uL (130-400); RED BLOOD COUNT 5.24 x10^6/uL (4.38-5.82); RED CELL DISTRIBUTION WIDTH 15.7 % (9.4-14.8)
[2018-09-15 19:17] LABS: ALBUMIN 3.6 g/dL (3.4-5.0); ANION GAP 7 mmol/L (5-15); CALCIUM 8.7 mg/dL (8.5-10.1); CHLORIDE 99 mmol/L (98-107); CREATININE 1.24 mg/dL (0.7-1.3)
[2018-09-15 19:31] LABS: TROPONIN I 0.157 ng/mL (0.000-0.045)
[2018-09-15] MEDS ORDERED: ASPIRIN 325 MG TABLET ONE (19:50)
[2018-09-15] MEDS ORDERED: ASPIRIN 325 MG TABLET PO ONE (20:00)
--- NOTE | 2018-09-15 20:23 | NUR ---
trop elevated cta shows pericardial effusion with pleural effusion pt will be admitted per dr bell after md checked us at bed side for pericardial effusion
--- NOTE | 2018-09-15 20:45 | NUR ---
pt up ambulated to bathroom with stable gait family at bedside vss same no sob no c/o pain
--- NOTE | 2018-09-15 21:00 | NUR ---
report given to abiola bob at bed side for admit eval now
--- NOTE | 2018-09-15 21:03 | NUR ---
given report to abiola bob at bed side for admit eval
[2018-09-15 21:24] LABS: INTERNATIONAL NORMALIZED RATIO 1.34 (0.93-1.1); PROTHROMBIN TIME 13.9 Seconds (9.6-11.5)
[2018-09-15 21:25] VITALS: BP 102/69
[2018-09-15 21:26] VITALS: BP 102/69
[2018-09-15 21:32] LABS: ALBUMIN 3.6 g/dL (3.4-5.0)
[2018-09-15 21:34] LABS: BILIRUBIN,INDIRECT 0.7 mg/dL (0.0-2.0); BILIRUBIN,TOTAL 1.7 mg/dL (0.2-1.0); TOTAL PROTEIN 6.9 g/dL (6.4-8.2)
[2018-09-15] MEDS: FUROSEMIDE 20 MG/2 ML IV SCH (22:03)
[2018-09-15] MEDS: ROPINIROLE 0.5MG TABLET PO SCH (22:28)
[2018-09-15] MEDS ORDERED: ONDANSETRON 2MG/ML, 2ML IVPush PRN (22:30)
[2018-09-15] MEDS ORDERED: morphine SULFATE 10 MG/ML, 1ML IVPush PRN (22:30)
[2018-09-15 22:57] LABS: THYROID STIMULATING HORMONE 16.3 mIU/L (0.358-3.740)
[2018-09-16 02:19] VITALS: BP 104/72
[2018-09-16] MEDS: PINK BISMUTH 87.33 MG/5 ML ORAL SUSP PO PRN ×3 (03:24→15:58)
[2018-09-16 05:12] LABS: BASOPHILS # (AUTO) 0.02 x10^3/uL (0-0.1); BASOPHILS % (AUTO) 0 % (0-1); EOSINOPHILS # (AUTO) 0.05 x10^3/uL (0-0.4); EOSINOPHILS % (AUTO) 1 % (1-7); LYMPHOCYTES % (AUTO) 15 % (22-44); MD NO; MEAN CORPUSCULAR HEMOGLOBIN 31.9 pg (27.5-34.5); MEAN CORPUSCULAR HGB CONC 32.9 g/dL (33.2-36.2); MEAN CORPUSCULAR VOLUME 97.2 fL (81-97); MEAN PLATELET VOLUME 10.2 fL (7.4-10.4); MONOCYTES # (AUTO) 0.62 x10^3/uL (0.2-0.8); MONOCYTES % (AUTO) 10 % (2-9); NEUTROPHILS # (AUTO) 4.62 x10^3/uL (1.8-6.8); NEUTROPHILS % (AUTO) 75 % (42-75); PLATELET COUNT 170 x10^3/uL (130-400); RED BLOOD COUNT 5.03 x10^6/uL (4.38-5.82); RED CELL DISTRIBUTION WIDTH 15.3 % (9.4-14.8)
[2018-09-16 05:34] LABS: ALANINE AMINOTRANSFERASE 27 U/L (12-78); ALBUMIN 3.4 g/dL (3.4-5.0); ANION GAP 7 mmol/L (5-15); CALCIUM 8.5 mg/dL (8.5-10.1); CHLORIDE 100 mmol/L (98-107); CREATININE 1.15 mg/dL (0.7-1.3)
[2018-09-16 05:36] LABS: ALKALINE PHOSPHATASE 130 U/L (45-117); BILIRUBIN,TOTAL 2.2 mg/dL (0.2-1.0); TOTAL PROTEIN 6.4 g/dL (6.4-8.2)
[2018-09-16 07:07] VITALS: BP 93/62
[2018-09-16] MEDS: FUROSEMIDE 20 MG/2 ML IV SCH ×2 (07:53→16:02)
[2018-09-16] MEDS: CLOPIDOGREL 75 MG TABLET PO SCH (07:54)
[2018-09-16] MEDS: POTASSIUM CHLORIDE 10 MEQ TABLET.ER PO SCH (07:54)
[2018-09-16 07:58] LABS: TROPONIN I 0.171 ng/mL (0.000-0.045)
[2018-09-16 09:00] VITALS: BP 108/73
[2018-09-16] MEDS: CARVEDILOL 3.125 MG TABLET PO SCH ×2 (09:00→21:09)
[2018-09-16] MEDS: ASPIRIN 81 MG TABLET EC PO SCH (09:00)
[2018-09-16 14:21] VITALS: BP 96/66
[2018-09-16 15:34] LABS: TROPONIN I 0.189 ng/mL (0.000-0.045)
[2018-09-16 16:00] VITALS: BP 103/76
[2018-09-16] MEDS: LISINOPRIL 5 MG TABLET PO SCH (16:02)
[2018-09-16 18:48] VITALS: BP 93/60
[2018-09-16] MEDS: ROPINIROLE 0.5MG TABLET PO SCH (21:09)
[2018-09-17] VITALS (7 sets, daily range): BP systolic 90–101; BP diastolic 50–68
[2018-09-17 05:21] LABS: BASOPHILS # (AUTO) 0.01 x10^3/uL (0-0.1); BASOPHILS % (AUTO) 0 % (0-1); EOSINOPHILS # (AUTO) 0.07 x10^3/uL (0-0.4); EOSINOPHILS % (AUTO) 2 % (1-7); LYMPHOCYTES # (AUTO) 0.73 x10^3/uL (1-3.4); LYMPHOCYTES % (AUTO) 15 % (22-44); MD NO; MEAN CORPUSCULAR HEMOGLOBIN 30.8 pg (27.5-34.5); MEAN CORPUSCULAR HGB CONC 31.7 g/dL (33.2-36.2); MEAN CORPUSCULAR VOLUME 96.9 fL (81-97); MEAN PLATELET VOLUME 9.8 fL (7.4-10.4); MONOCYTES # (AUTO) 0.56 x10^3/uL (0.2-0.8); MONOCYTES % (AUTO) 11 % (2-9); NEUTROPHILS # (AUTO) 3.61 x10^3/uL (1.8-6.8); NEUTROPHILS % (AUTO) 72 % (42-75); PLATELET COUNT 161 x10^3/uL (130-400); RED BLOOD COUNT 4.82 x10^6/uL (4.38-5.82); RED CELL DISTRIBUTION WIDTH 15.1 % (9.4-14.8)
[2018-09-17 05:36] LABS: CHLORIDE 102 mmol/L (98-107)
[2018-09-17 05:46] LABS: ALANINE AMINOTRANSFERASE 22 U/L (12-78); ALBUMIN 3.1 g/dL (3.4-5.0); ALKALINE PHOSPHATASE 103 U/L (45-117); ANION GAP 7 mmol/L (5-15); BILIRUBIN,TOTAL 2.3 mg/dL (0.2-1.0); CALCIUM 8.2 mg/dL (8.5-10.1); TOTAL PROTEIN 5.9 g/dL (6.4-8.2); TROPONIN I 0.206 ng/mL (0.000-0.045)
[2018-09-17] MEDS: CLOPIDOGREL 75 MG TABLET PO SCH (08:00)
[2018-09-17] MEDS: FUROSEMIDE 20 MG/2 ML IV SCH ×2 (08:00→17:06)
[2018-09-17] MEDS: POTASSIUM CHLORIDE 10 MEQ TABLET.ER PO SCH (08:00)
[2018-09-17] MEDS: CARVEDILOL 3.125 MG TABLET PO SCH ×2 (08:00→21:30)
[2018-09-17] MEDS: ASPIRIN 81 MG TABLET EC PO SCH (08:01)
[2018-09-17] MEDS ORDERED: SPIRONOLACTONE 25 MG TABLET PO SCH (11:30)
[2018-09-17] MEDS: LISINOPRIL 5 MG TABLET PO SCH (17:09)
[2018-09-17 18:38] LABS: TROPONIN I 0.171 ng/mL (0.000-0.045)
[2018-09-17] MEDS: ROPINIROLE 0.5MG TABLET PO SCH (21:13)
[2018-09-18 01:31] VITALS: BP 95/58
[2018-09-18 05:32] LABS: BASOPHILS # (AUTO) 0.03 x10^3/uL (0-0.1); BASOPHILS % (AUTO) 1 % (0-1); EOSINOPHILS # (AUTO) 0.03 x10^3/uL (0-0.4); EOSINOPHILS % (AUTO) 1 % (1-7); LYMPHOCYTES # (AUTO) 0.94 x10^3/uL (1-3.4); LYMPHOCYTES % (AUTO) 16 % (22-44); MD NO; MEAN CORPUSCULAR HEMOGLOBIN 31.8 pg (27.5-34.5); MEAN CORPUSCULAR HGB CONC 33.1 g/dL (33.2-36.2); MEAN CORPUSCULAR VOLUME 96.3 fL (81-97); MEAN PLATELET VOLUME 9.9 fL (7.4-10.4); MONOCYTES # (AUTO) 0.74 x10^3/uL (0.2-0.8); MONOCYTES % (AUTO) 13 % (2-9); NEUTROPHILS # (AUTO) 4.13 x10^3/uL (1.8-6.8); NEUTROPHILS % (AUTO) 71 % (42-75); PLATELET COUNT 164 x10^3/uL (130-400); RED BLOOD COUNT 4.73 x10^6/uL (4.38-5.82); RED CELL DISTRIBUTION WIDTH 15.3 % (9.4-14.8)
[2018-09-18 05:42] LABS: CHLORIDE 100 mmol/L (98-107)
[2018-09-18 05:50] LABS: ALANINE AMINOTRANSFERASE 26 U/L (12-78); ALBUMIN 3.3 g/dL (3.4-5.0); ALKALINE PHOSPHATASE 105 U/L (45-117); ANION GAP 7 mmol/L (5-15); CALCIUM 8.6 mg/dL (8.5-10.1); CREATININE 1.03 mg/dL (0.7-1.3); TOTAL PROTEIN 6.2 g/dL (6.4-8.2)
[2018-09-18 07:37] VITALS: BP 97/64
[2018-09-18] MEDS: FUROSEMIDE 20 MG/2 ML IV SCH (07:42)
[2018-09-18] MEDS ORDERED: SPIRONOLACTONE 25 MG TABLET PO SCH (09:00)
[2018-09-18 09:23] VITALS: BP 101/68
[2018-09-18] MEDS: CARVEDILOL 3.125 MG TABLET PO SCH (09:24)
[2018-09-18] MEDS: ASPIRIN 81 MG TABLET EC PO SCH (09:24)
[2018-09-18] MEDS: CLOPIDOGREL 75 MG TABLET PO SCH (09:24)
[2018-09-18] MEDS ORDERED: SPIR25TA PO (11:54)
== END 2018-09-18 13:28 | disposition home or self-care (01) | DRG 292 ==
LOC: ED 19:50 → EDIP 20:27 → 5SO 21:17 → DCLOUNGE 09-18 13:12
PROVIDERS: ADMIT Family Medicine; ATTEND Family Medicine
DX: I11.0 Hypertensive heart disease with heart failure (principal); E87.1 Hypo-osmolality and hyponatremia; R18.8 Other ascites; I24.8 Other forms of acute ischemic heart disease; I50.43 Acute on chronic combined systolic (congestive) and diastolic (congestive) heart failure; F41.9 Anxiety disorder, unspecified; G25.81 Restless legs syndrome; I25.10 Atherosclerotic heart disease of native coronary artery without angina pectoris; I25.5 Ischemic cardiomyopathy; K75.9 Inflammatory liver disease, unspecified; K82.8 Other specified diseases of gallbladder; Z79.02 Long term (current) use of antithrombotics/antiplatelets; Z87.891 Personal history of nicotine dependence; Z82.49 Family history of ischemic heart disease and other diseases of the circulatory system; I25.2 Old myocardial infarction; Z95.5 Presence of coronary angioplasty implant and graft; Z95.810 Presence of automatic (implantable) cardiac defibrillator; Z79.82 Long term (current) use of aspirin; Z79.899 Other long term (current) drug therapy
CPT/HCPCS: 36415; 36600; 71045; 71046; 71275; 80048; 80053; 80076; 82040; 82803; 83735; 83880; 84100; 84439; 84443; 84484; 85025; 85610; 93005; 93308; 99285; G0378; Q9967; J1940

== ENCOUNTER 2018-10-09 17:44 | Inpatient (IN) | payer OTHER, MEDICARE ==
[~2018-10-09] VITALS: Ht 177.8 cm; Wt 78.2 kg
[2018-10-09] MEDS ORDERED: SODIUM CHLORIDE FLUSH 10ML SYR IVF ONE (18:00)
--- NOTE | 2018-10-09 18:14 | NUR ---
THIS IS A 73 YEAR OLD MALE WHO C/O OF A SYNCOPAL EPISODE TODAY. PT DENIES ANY INJURY OR HITTING HEAD HE IS ON BLOOD THINNERS. PT PLACED ON ELECTRICAL CAD DESIGNER, SINUS AT 62 ,CONTINOUS SP02 AT 98% AND CYCLE VS.
[2018-10-09 18:28] LABS: ALBUMIN 3.6 g/dL (3.4-5.0); ANION GAP 6 mmol/L (5-15); CALCIUM 8.6 mg/dL (8.5-10.1); CHLORIDE 90 mmol/L (98-107); CREATININE 1.32 mg/dL (0.7-1.3)
--- NOTE | 2018-10-09 18:57 | NUR ---
REPORT TO TIFFANIE GAINES, PLAN OF CARE DISCUSSED
--- NOTE | 2018-10-09 18:59 | NUR ---
REPORT OF PT FROM LIANA LÓPEZ AND ASSUMING CARE OF PT.
[2018-10-09 19:24] LABS: BASOPHILS # (AUTO) 0.01 x10^3/uL (0-0.1); BASOPHILS % (AUTO) 0 % (0-1); EOSINOPHILS # (AUTO) 0.08 x10^3/uL (0-0.4); EOSINOPHILS % (AUTO) 1 % (1-7); LYMPHOCYTES # (AUTO) 0.84 x10^3/uL (1-3.4); LYMPHOCYTES % (AUTO) 14 % (22-44); MEAN CORPUSCULAR HGB CONC 32.5 g/dL (33.2-36.2); MEAN CORPUSCULAR VOLUME 95.5 fL (81-97); MEAN PLATELET VOLUME 11.8 fL (7.4-10.4); MONOCYTES # (AUTO) 0.57 x10^3/uL (0.2-0.8); MONOCYTES % (AUTO) 9 % (2-9); NEUTROPHILS # (AUTO) 4.54 x10^3/uL (1.8-6.8); NEUTROPHILS % (AUTO) 75 % (42-75); PLATELET COUNT 128 x10^3/uL (130-400); RED BLOOD COUNT 5.51 x10^6/uL (4.38-5.82); RED CELL DISTRIBUTION WIDTH 15.4 % (9.4-14.8)
[2018-10-09 19:25] LABS: MD MORPH REVIEW ONLY
[2018-10-09 19:34] LABS: ANISOCYTOSIS 1+
[2018-10-09 19:35] LABS: <PLATELET ESTIMATE> DECREASED; POLYCHROMASIA 1+
[2018-10-09 19:36] LABS: LARGE PLATELETS 1+
--- NOTE | 2018-10-09 20:54 | NUR ---
REPORT OF PT TO RN RASHEED. ALL QUESTIONS ANSWERED.
[2018-10-09 21:36] VITALS: BP 95/69
[2018-10-09] MEDS ORDERED: ACETAMINOPHEN 325 MG TABLET PO PRN (22:00)
[2018-10-09] MEDS ORDERED: ONDANSETRON 2MG/ML, 2ML IVPush PRN (22:00)
[2018-10-09] MEDS ORDERED: ROPINIROLE 0.25MG TABLET ONE (22:53)
[2018-10-09] MEDS: HEPARIN 5,000 UNITS/ML, 1ML SQ SCH (22:58)
[2018-10-09] MEDS ORDERED: ROPINIROLE 0.5MG TABLET PO SCH (23:00)
[2018-10-09] MEDS ORDERED: CARVEDILOL 3.125 MG TABLET PO SCH (23:00)
[2018-10-10 00:37] LABS: ANION GAP 7 mmol/L (5-15); CALCIUM 8.4 mg/dL (8.5-10.1); CHLORIDE 93 mmol/L (98-107); CREATININE 1.38 mg/dL (0.7-1.3)
[2018-10-10 00:58] LABS: TROPONIN I 0.134 ng/mL (0.000-0.045)
[2018-10-10 01:11] LABS: THYROID STIMULATING HORMONE 11.2 mIU/L (0.358-3.740)
[2018-10-10 02:44] VITALS: BP 96/63
[2018-10-10 03:51] LABS: POTASSIUM,URINE RANDOM 39 mmol/L
[2018-10-10 03:56] LABS: CHLORIDE,URINE RANDOM < 10 mmol/L; SODIUM,URINE RANDOM < 5 mmol/L
[2018-10-10 04:37] LABS: OSMOLALITY,URINE 619 mOsm/kg (500-850)
[2018-10-10] MEDS: HEPARIN 5,000 UNITS/ML, 1ML SQ SCH ×3 (05:30→22:01)
[2018-10-10 06:14] LABS: ANION GAP 7 mmol/L (5-15); CALCIUM 8.4 mg/dL (8.5-10.1); CHLORIDE 94 mmol/L (98-107)
[2018-10-10 06:17] LABS: TROPONIN I 0.161 ng/mL (0.000-0.045)
[2018-10-10 06:40] LABS: MEAN CORPUSCULAR HEMOGLOBIN 31.7 pg (27.5-34.5); MEAN CORPUSCULAR HGB CONC 32.9 g/dL (33.2-36.2); MEAN CORPUSCULAR VOLUME 96.3 fL (81-97); MEAN PLATELET VOLUME 11.5 fL (7.4-10.4); PLATELET COUNT 109 x10^3/uL (130-400); RED BLOOD COUNT 5.21 x10^6/uL (4.38-5.82); RED CELL DISTRIBUTION WIDTH 15.7 % (9.4-14.8)
[2018-10-10 06:41] LABS: BASOPHILS # (AUTO) 0.02 x10^3/uL (0-0.1); BASOPHILS % (AUTO) 0 % (0-1); EOSINOPHILS # (AUTO) 0.06 x10^3/uL (0-0.4); EOSINOPHILS % (AUTO) 1 % (1-7); LYMPHOCYTES # (AUTO) 0.94 x10^3/uL (1-3.4); LYMPHOCYTES % (AUTO) 16 % (22-44); MD SCAN; MONOCYTES # (AUTO) 0.58 x10^3/uL (0.2-0.8); MONOCYTES % (AUTO) 10 % (2-9); NEUTROPHILS # (AUTO) 4.27 x10^3/uL (1.8-6.8); NEUTROPHILS % (AUTO) 73 % (42-75)
[2018-10-10 06:50] VITALS: BP 100/60
[2018-10-10] MEDS: CLOPIDOGREL 75 MG TABLET PO SCH (09:36)
[2018-10-10] MEDS: ASPIRIN 81 MG TABLET EC PO SCH (09:36)
[2018-10-10] MEDS: CARVEDILOL 3.125 MG TABLET PO SCH ×2 (09:37→20:06)
[2018-10-10] MEDS ORDERED: SODIUM CHLORIDE 0.9% 1,000 ML IV SCH (12:00)
[2018-10-10 12:45] LABS: ALBUMIN 3.6 g/dL (3.4-5.0)
[2018-10-10 12:47] LABS: BILIRUBIN,TOTAL 4.4 mg/dL (0.2-1.0); TOTAL PROTEIN 6.9 g/dL (6.4-8.2)
[2018-10-10 12:48] LABS: BILIRUBIN,INDIRECT 2.4 mg/dL (0.0-2.0)
[2018-10-10 12:59] LABS: FREE T4 (FREE THYROXINE) 0.99 ng/dL (0.76-1.46)
[2018-10-10 13:40] VITALS: BP 97/67
[2018-10-10] MEDS: LEVOTHYROXINE 50 MCG TABLET PO SCH (17:10)
[2018-10-10 19:01] VITALS: BP 87/68
[2018-10-10] MEDS ORDERED: ROPINIROLE 0.25MG TABLET ONE (19:52)
[2018-10-10] MEDS: ROPINIROLE 0.5MG TABLET PO SCH (20:07)
[2018-10-10] MEDS: ATORVASTATIN 40 MG TABLET PO SCH (20:07)
[2018-10-11 01:07] VITALS: BP 94/74
[2018-10-11] MEDS: HEPARIN 5,000 UNITS/ML, 1ML SQ SCH ×3 (05:56→22:17)
[2018-10-11] MEDS: LEVOTHYROXINE 50 MCG TABLET PO SCH (05:56)
[2018-10-11 07:05] LABS: CHLORIDE 94 mmol/L (98-107)
[2018-10-11 07:08] LABS: ANION GAP 8 mmol/L (5-15); CALCIUM 8.8 mg/dL (8.5-10.1); CREATININE 1.15 mg/dL (0.7-1.3)
[2018-10-11 08:20] VITALS: BP 100/75
[2018-10-11] MEDS: CLOPIDOGREL 75 MG TABLET PO SCH (09:12)
[2018-10-11] MEDS: CARVEDILOL 3.125 MG TABLET PO SCH ×2 (09:12→20:28)
[2018-10-11] MEDS: ASPIRIN 81 MG TABLET EC PO SCH (09:12)
[2018-10-11] MEDS ORDERED: ERGOCALCIFEROL 50,000 UNIT CAPSULE PO SCH (11:30)
[2018-10-11 14:10] VITALS: BP 96/69
[2018-10-11] MEDS: ATORVASTATIN 40 MG TABLET PO SCH (20:28)
[2018-10-11] MEDS: ROPINIROLE 0.5MG TABLET PO SCH (20:29)
[2018-10-11 20:33] VITALS: BP 101/73
[2018-10-12 02:39] VITALS: BP 95/63
[2018-10-12] MEDS: LEVOTHYROXINE 50 MCG TABLET PO SCH (06:14)
[2018-10-12] MEDS: HEPARIN 5,000 UNITS/ML, 1ML SQ SCH ×3 (06:14→21:27)
[2018-10-12 06:15] LABS: ALANINE AMINOTRANSFERASE 33 U/L (12-78); ALBUMIN 3.6 g/dL (3.4-5.0); ANION GAP 10 mmol/L (5-15); CALCIUM 8.9 mg/dL (8.5-10.1); CHLORIDE 94 mmol/L (98-107)
[2018-10-12 06:18] LABS: ALKALINE PHOSPHATASE 129 U/L (45-117); BILIRUBIN,TOTAL 5.6 mg/dL (0.2-1.0); CREATININE 1.24 mg/dL (0.7-1.3); TOTAL PROTEIN 6.8 g/dL (6.4-8.2)
[2018-10-12 07:30] VITALS: BP 100/73
[2018-10-12] MEDS: ASPIRIN 81 MG TABLET EC PO SCH (09:18)
[2018-10-12] MEDS: CLOPIDOGREL 75 MG TABLET PO SCH (09:18)
[2018-10-12] MEDS: CARVEDILOL 3.125 MG TABLET PO SCH ×2 (09:18→20:40)
[2018-10-12] MEDS ORDERED: LISINOPRIL 5 MG TABLET PO SCH (11:30)
[2018-10-12 14:00] VITALS: BP 98/72
[2018-10-12 19:31] VITALS: BP 89/63
[2018-10-12 20:35] VITALS: BP 96/66
[2018-10-12] MEDS: ROPINIROLE 0.5MG TABLET PO SCH (20:41)
[2018-10-12] MEDS: ATORVASTATIN 40 MG TABLET PO SCH (20:41)
[2018-10-13 00:16] VITALS: BP 85/51
[2018-10-13 05:34] LABS: MEAN CORPUSCULAR HEMOGLOBIN 31.2 pg (27.5-34.5); MEAN CORPUSCULAR HGB CONC 32.4 g/dL (33.2-36.2); MEAN CORPUSCULAR VOLUME 96.2 fL (81-97); MEAN PLATELET VOLUME 12.7 fL (7.4-10.4); PLATELET COUNT 106 x10^3/uL (130-400); RED BLOOD COUNT 5.35 x10^6/uL (4.38-5.82); RED CELL DISTRIBUTION WIDTH 15.6 % (9.4-14.8)
[2018-10-13 05:40] LABS: ALBUMIN 3.4 g/dL (3.4-5.0); ANION GAP 10 mmol/L (5-15); CALCIUM 8.6 mg/dL (8.5-10.1); CHLORIDE 94 mmol/L (98-107)
[2018-10-13 05:49] LABS: ALANINE AMINOTRANSFERASE 31 U/L (12-78); ALKALINE PHOSPHATASE 136 U/L (45-117); BILIRUBIN, DIRECT 2.5 mg/dL (0.1-0.2); BILIRUBIN,TOTAL 5.5 mg/dL (0.2-1.0); CREATININE 1.16 mg/dL (0.7-1.3); TOTAL PROTEIN 6.4 g/dL (6.4-8.2)
[2018-10-13 05:54] LABS: BASOPHILS # (AUTO) 0.01 x10^3/uL (0-0.1); BASOPHILS % (AUTO) 0 % (0-1); EOSINOPHILS # (AUTO) 0.04 x10^3/uL (0-0.4); EOSINOPHILS % (AUTO) 1 % (1-7); LYMPHOCYTES % (AUTO) 12 % (22-44); MD SCAN; MONOCYTES # (AUTO) 0.43 x10^3/uL (0.2-0.8); MONOCYTES % (AUTO) 7 % (2-9); NEUTROPHILS # (AUTO) 4.82 x10^3/uL (1.8-6.8); NEUTROPHILS % (AUTO) 80 % (42-75)
[2018-10-13] MEDS: HEPARIN 5,000 UNITS/ML, 1ML SQ SCH ×3 (05:55→22:02)
[2018-10-13] MEDS: LEVOTHYROXINE 50 MCG TABLET PO SCH (05:55)
[2018-10-13 07:10] VITALS: BP 87/50
[2018-10-13] MEDS: CARVEDILOL 3.125 MG TABLET PO SCH ×2 (09:12→20:34)
[2018-10-13] MEDS: CLOPIDOGREL 75 MG TABLET PO SCH (09:12)
[2018-10-13] MEDS: ASPIRIN 81 MG TABLET EC PO SCH (09:12)
[2018-10-13 13:20] VITALS: BP 96/54
[2018-10-13] MEDS ORDERED: FUROSEMIDE 20 MG/2 ML IV ONE (13:30)
[2018-10-13 18:49] VITALS: BP 101/71
[2018-10-13 20:33] VITALS: BP 98/65
[2018-10-13] MEDS: ATORVASTATIN 40 MG TABLET PO SCH (20:34)
[2018-10-13] MEDS: ROPINIROLE 0.5MG TABLET PO SCH (20:35)
[2018-10-14 01:02] VITALS: BP 97/61
[2018-10-14 05:36] LABS: ALANINE AMINOTRANSFERASE 28 U/L (12-78); ANION GAP 8 mmol/L (5-15); CALCIUM 8.4 mg/dL (8.5-10.1); CHLORIDE 94 mmol/L (98-107); CREATININE 1.07 mg/dL (0.7-1.3)
[2018-10-14 05:38] LABS: ALKALINE PHOSPHATASE 155 U/L (45-117); BILIRUBIN,TOTAL 4.3 mg/dL (0.2-1.0); TOTAL PROTEIN 5.8 g/dL (6.4-8.2)
[2018-10-14 05:57] LABS: BASOPHILS % (AUTO) 0 % (0-1); EOSINOPHILS # (AUTO) 0.05 x10^3/uL (0-0.4); EOSINOPHILS % (AUTO) 1 % (1-7); LYMPHOCYTES # (AUTO) 0.75 x10^3/uL (1-3.4); LYMPHOCYTES % (AUTO) 13 % (22-44); MD SCAN; MEAN CORPUSCULAR HEMOGLOBIN 31.3 pg (27.5-34.5); MEAN CORPUSCULAR HGB CONC 32.5 g/dL (33.2-36.2); MEAN CORPUSCULAR VOLUME 96.1 fL (81-97); MEAN PLATELET VOLUME 10.7 fL (7.4-10.4); MONOCYTES # (AUTO) 0.41 x10^3/uL (0.2-0.8); MONOCYTES % (AUTO) 7 % (2-9); NEUTROPHILS # (AUTO) 4.36 x10^3/uL (1.8-6.8); NEUTROPHILS % (AUTO) 78 % (42-75); PLATELET COUNT 103 x10^3/uL (130-400); RED BLOOD COUNT 4.88 x10^6/uL (4.38-5.82); RED CELL DISTRIBUTION WIDTH 15.8 % (9.4-14.8)
[2018-10-14] MEDS: HEPARIN 5,000 UNITS/ML, 1ML SQ SCH ×3 (06:11→22:02)
[2018-10-14] MEDS: LEVOTHYROXINE 50 MCG TABLET PO SCH (06:11)
[2018-10-14 06:50] VITALS: BP 103/71
[2018-10-14] MEDS: CLOPIDOGREL 75 MG TABLET PO SCH (08:39)
[2018-10-14] MEDS: ASPIRIN 81 MG TABLET EC PO SCH (08:39)
[2018-10-14] MEDS: CARVEDILOL 3.125 MG TABLET PO SCH ×2 (08:40→20:45)
[2018-10-14] MEDS: FUROSEMIDE 40 MG TABLET PO SCH (10:52)
[2018-10-14 12:59] VITALS: BP 90/64
[2018-10-14 20:43] VITALS: BP 97/58
[2018-10-14] MEDS: ROPINIROLE 0.5MG TABLET PO SCH (20:45)
[2018-10-14] MEDS: ATORVASTATIN 40 MG TABLET PO SCH (20:46)
[2018-10-15 00:14] VITALS: BP 84/61
[2018-10-15] MEDS ORDERED: SODIUM CHLORIDE NASAL SPRAY 45ML BOTTLE NAS PRN (03:30)
[2018-10-15] MEDS: LEVOTHYROXINE 50 MCG TABLET PO SCH (05:35)
[2018-10-15] MEDS: HEPARIN 5,000 UNITS/ML, 1ML SQ SCH ×3 (05:36→21:59)
[2018-10-15 06:48] VITALS: BP 103/71
[2018-10-15 07:05] LABS: ANION GAP 8 mmol/L (5-15); CALCIUM 8.4 mg/dL (8.5-10.1); CHLORIDE 95 mmol/L (98-107); CREATININE 1.11 mg/dL (0.7-1.3)
[2018-10-15 07:26] LABS: MEAN CORPUSCULAR HEMOGLOBIN 30.9 pg (27.5-34.5); MEAN CORPUSCULAR HGB CONC 32.7 g/dL (33.2-36.2); MEAN CORPUSCULAR VOLUME 94.5 fL (81-97); MEAN PLATELET VOLUME 11.8 fL (7.4-10.4); PLATELET COUNT 91 x10^3/uL (130-400); RED BLOOD COUNT 4.94 x10^6/uL (4.38-5.82); RED CELL DISTRIBUTION WIDTH 16.1 % (9.4-14.8)
[2018-10-15 07:28] LABS: BASOPHILS # (AUTO) 0.01 x10^3/uL (0-0.1); BASOPHILS % (AUTO) 0 % (0-1); EOSINOPHILS # (AUTO) 0.06 x10^3/uL (0-0.4); EOSINOPHILS % (AUTO) 1 % (1-7); LYMPHOCYTES # (AUTO) 0.86 x10^3/uL (1-3.4); LYMPHOCYTES % (AUTO) 16 % (22-44); MD SCAN; MONOCYTES # (AUTO) 0.42 x10^3/uL (0.2-0.8); MONOCYTES % (AUTO) 8 % (2-9); NEUTROPHILS # (AUTO) 4.12 x10^3/uL (1.8-6.8); NEUTROPHILS % (AUTO) 75 % (42-75)
[2018-10-15] MEDS: CLOPIDOGREL 75 MG TABLET PO SCH (08:37)
[2018-10-15] MEDS: FUROSEMIDE 40 MG TABLET PO SCH (08:37)
[2018-10-15] MEDS: CARVEDILOL 3.125 MG TABLET PO SCH ×2 (08:37→20:46)
[2018-10-15] MEDS: ASPIRIN 81 MG TABLET EC PO SCH (08:37)
[2018-10-15 14:29] VITALS: BP 81/53
[2018-10-15 18:23] VITALS: BP 92/60
[2018-10-15 19:00] VITALS: BP 97/63
[2018-10-15 20:28] VITALS: BP 103/73
[2018-10-15] MEDS: ATORVASTATIN 40 MG TABLET PO SCH (20:47)
[2018-10-15] MEDS: ROPINIROLE 0.5MG TABLET PO SCH (20:47)
[2018-10-16 02:57] VITALS: BP 108/66
[2018-10-16] MEDS: LEVOTHYROXINE 50 MCG TABLET PO SCH (05:19)
[2018-10-16] MEDS: HEPARIN 5,000 UNITS/ML, 1ML SQ SCH (05:19)
[2018-10-16 06:13] LABS: ANION GAP 5 mmol/L (5-15); CALCIUM 8.6 mg/dL (8.5-10.1); CHLORIDE 94 mmol/L (98-107)
[2018-10-16 06:19] LABS: MEAN CORPUSCULAR HEMOGLOBIN 31.1 pg (27.5-34.5); MEAN CORPUSCULAR HGB CONC 32.7 g/dL (33.2-36.2); RED BLOOD COUNT 4.95 x10^6/uL (4.38-5.82)
[2018-10-16 06:20] LABS: MEAN PLATELET VOLUME 12.2 fL (7.4-10.4); PLATELET COUNT 95 x10^3/uL (130-400)
[2018-10-16 06:22] LABS: BASOPHILS # (AUTO) 0.01 x10^3/uL (0-0.1); BASOPHILS % (AUTO) 0 % (0-1); EOSINOPHILS # (AUTO) 0.05 x10^3/uL (0-0.4); EOSINOPHILS % (AUTO) 1 % (1-7); LYMPHOCYTES # (AUTO) 0.88 x10^3/uL (1-3.4); LYMPHOCYTES % (AUTO) 15 % (22-44); MD SCAN; MONOCYTES # (AUTO) 0.46 x10^3/uL (0.2-0.8); MONOCYTES % (AUTO) 8 % (2-9); NEUTROPHILS # (AUTO) 4.49 x10^3/uL (1.8-6.8); NEUTROPHILS % (AUTO) 76 % (42-75)
[2018-10-16 07:05] VITALS: BP 103/70
[2018-10-16] MEDS: CLOPIDOGREL 75 MG TABLET PO SCH (08:39)
[2018-10-16] MEDS: FUROSEMIDE 40 MG TABLET PO SCH (08:39)
[2018-10-16] MEDS: ASPIRIN 81 MG TABLET EC PO SCH (08:39)
[2018-10-16] MEDS: CARVEDILOL 3.125 MG TABLET PO SCH ×2 (08:39→21:17)
[2018-10-16 14:31] VITALS: BP 97/66
[2018-10-16 19:15] VITALS: BP 90/65
[2018-10-16 21:12] VITALS: BP 100/69
[2018-10-16] MEDS: ROPINIROLE 0.5MG TABLET PO SCH (21:17)
[2018-10-16] MEDS: ATORVASTATIN 40 MG TABLET PO SCH (21:17)
[2018-10-17 01:01] VITALS: BP 92/65
[2018-10-17 04:51] LABS: ANION GAP 8 mmol/L (5-15); CALCIUM 8.3 mg/dL (8.5-10.1); CHLORIDE 96 mmol/L (98-107); CREATININE 0.94 mg/dL (0.7-1.3)
[2018-10-17 05:06] LABS: MEAN CORPUSCULAR HEMOGLOBIN 30.4 pg (27.5-34.5); MEAN CORPUSCULAR HGB CONC 32.5 g/dL (33.2-36.2); MEAN CORPUSCULAR VOLUME 93.7 fL (81-97); RED BLOOD COUNT 4.64 x10^6/uL (4.38-5.82); RED CELL DISTRIBUTION WIDTH 15.9 % (9.4-14.8)
[2018-10-17 05:59] LABS: BASOPHILS % (AUTO) 0 % (0-1); EOSINOPHILS # (AUTO) 0.05 x10^3/uL (0-0.4); EOSINOPHILS % (AUTO) 1 % (1-7); LYMPHOCYTES # (AUTO) 0.74 x10^3/uL (1-3.4); LYMPHOCYTES % (AUTO) 13 % (22-44); MD SCAN; MEAN PLATELET VOLUME 11.9 fL (7.4-10.4); MONOCYTES # (AUTO) 0.52 x10^3/uL (0.2-0.8); MONOCYTES % (AUTO) 9 % (2-9); NEUTROPHILS # (AUTO) 4.38 x10^3/uL (1.8-6.8); NEUTROPHILS % (AUTO) 77 % (42-75); PLATELET COUNT 91 x10^3/uL (130-400)
[2018-10-17] MEDS: LEVOTHYROXINE 50 MCG TABLET PO SCH (06:26)
[2018-10-17 07:33] VITALS: BP 100/69
[2018-10-17] MEDS: CLOPIDOGREL 75 MG TABLET PO SCH (07:48)
[2018-10-17] MEDS: FUROSEMIDE 40 MG TABLET PO SCH (07:49)
[2018-10-17] MEDS: CARVEDILOL 3.125 MG TABLET PO SCH (07:49)
[2018-10-17] MEDS: ASPIRIN 81 MG TABLET EC PO SCH (07:49)
[2018-10-17] MEDS ORDERED: ATOR40TA78 PO (11:39)
[2018-10-17] MEDS ORDERED: LEVO50TA PO (13:09)
== END 2018-10-17 14:48 | DRG 280 ==
LOC: ED 19:47 → EDIP 19:50 → 5SO 21:23
PROVIDERS: ADMIT Family Medicine; ATTEND Family Medicine
DX: I13.0 Hypertensive heart and chronic kidney disease with heart failure and stage 1 through stage 4 chronic kidney disease, or unspecified chronic kidney disease (principal); I21.A1 Myocardial infarction type 2; I50.43 Acute on chronic combined systolic (congestive) and diastolic (congestive) heart failure; N17.0 Acute kidney failure with tubular necrosis; R53.2 Functional quadriplegia; E87.1 Hypo-osmolality and hyponatremia; J96.11 Chronic respiratory failure with hypoxia; D69.2 Other nonthrombocytopenic purpura; I42.0 Dilated cardiomyopathy; D69.6 Thrombocytopenia, unspecified; E03.9 Hypothyroidism, unspecified; E78.5 Hyperlipidemia, unspecified; G25.81 Restless legs syndrome; I25.10 Atherosclerotic heart disease of native coronary artery without angina pectoris; I45.10 Unspecified right bundle-branch block; I50.84 End stage heart failure; I95.89 Other hypotension; K82.8 Other specified diseases of gallbladder; N18.9 Chronic kidney disease, unspecified; W18.30XA Fall on same level, unspecified, initial encounter; Z82.49 Family history of ischemic heart disease and other diseases of the circulatory system; I25.2 Old myocardial infarction; Z87.891 Personal history of nicotine dependence; Z95.5 Presence of coronary angioplasty implant and graft; Z95.810 Presence of automatic (implantable) cardiac defibrillator; Z99.81 Dependence on supplemental oxygen
CPT/HCPCS: 36415; 71045; 80048; 80053; 80076; 82040; 82306; 82436; 82570; 82607; 82728; 83540; 83550; 83735; 83880; 83930; 83935; 84100; 84133; 84300; 84439; 84443; 84466; 84481; 84484; 85025; 93005; 93306; G0378; J1644; J1940; J7030